=== PATIENT | male | born 1940 | race Caucasian/White ===

== ENCOUNTER → 2019-06-24 12:19 | Outpatient (CLI) | payer MEDICARE, BC | END | disposition home or self-care (01) | LOC: D.RT 12:19 → D.RAD 13:00 → D.CT 13:00 → D.RT 13:15 | PROVIDERS: ATTEND Internal Medicine Pulmonary Disease | DX: J44.9 Chronic obstructive pulmonary disease, unspecified (principal) ==

== ENCOUNTER 2020-04-01 11:47 | Inpatient (IN) | payer MEDICARE, BC ==
[~2020-04-01] VITALS: Ht 172.7 cm; Wt 50.9 kg
[2020-04-01 12:08] VITALS: BP 113/72; BMI 20.5
--- NOTE | 2020-04-01 12:23 | NUR ---
RECEIVED PT FROM ADMISSIONS. PT IS AAO AND UP WITH ASSIST. FALL PRECAUTIONS IN PLACE. CALL LIGHT W/I REACH. ELECTRIC WHEELCHAIR AT BEDSIDE. QUICKSTART, HISTORY, AND ASSESSMENT COMPLETE. PT ORIENTED TO ROOM. WILL CTM. NO S/S OF DISTRESS NOTED. RR EVEN AND UNLABORED ON 4L 02. VSS AND WNL.
--- NOTE | 2020-04-01 13:12 | NUR ---
EKG PERFORMED REVEALING UNCONTROLLED A-FIB AT 110. TELEMETRY APPLIED. 20GA INITIATED TO RIGHT FOREARM X1 ATTEMPT. D5NS INFUSING @50ML/HR ALONG WITH ABX. PT DENIES ANY NEEDS. WILL CTM.
[2020-04-01 14:09] LABS: BASOPHILS 0.1 % (0-2); EOSINOPHILS 0.1 % (0-7); HEMATOCRIT 38.2 % (42.0-54.0); HEMOGLOBIN 12.4 g/dL (13.5-17.5); IMMATURE GRANULOCYTES 0.9 % (0-5); LYMPHOCYTES 4.5 % (15-50); MCH 28.1 pg (26.0-34.0); MCHC 32.5 g/dL (31.0-37.0); MCV 86.6 fL (80.0-100.0); MEAN PLATELET VOLUME 9.6 fL (7.4-10.4); MONOCYTES 5.4 % (2-11); PLATELET COUNT 236 10x3/uL (130-400); RBC 4.41 10x6/uL (4.20-6.10); RDW 13.2 % (11.5-14.5); WBC 15.5 10x3/uL (4.8-10.8)
[2020-04-01 14:25] LABS: ALBUMIN 1.8 g/dL (3.4-5.0); ANION GAP 12.3 mmol/L (8-16); BILIRUBIN - TOTAL 0.62 mg/dL (0.2-1.3); CALCIUM 8.2 mg/dL (8.5-10.1); CARBON DIOXIDE 28.6 mmol/L (21.0-32.0); CREATININE - SERUM 1.7 mg/dL (0.6-1.3); MAGNESIUM - SERUM 1.9 mg/dL (1.8-2.4); PHOSPHOROUS 4.4 mg/dL (2.5-4.9); POTASSIUM - SERUM 4.9 mmol/L (3.5-5.1); PROTEIN - SERUM 5.8 g/dL (6.4-8.2)
[2020-04-01 14:29] LABS: BILIRUBIN NEGATIVE (NEGATIVE); GLUCOSE NEGATIVE (NEGATIVE); KETONE NEGATIVE (NEGATIVE); NITRITE NEGATIVE (NEGATIVE); SPECIFIC GRAVITY 1.015 (1.005-1.020); UROBILINOGEN NORMAL (NORMAL)
[2020-04-01] MEDS ORDERED: CYMBALTA60 MG PO (16:18)
[2020-04-01] MEDS ORDERED: TOPROL XL25 MG PO (16:18)
[2020-04-01] MEDS ORDERED: XARELTO20 MG PO (16:18)
[2020-04-01] MEDS ORDERED: LISINOPRIL10 MG PO (16:19)
[2020-04-01] MEDS ORDERED: PRAVACHOL40 MG PO (16:19)
[2020-04-01] MEDS ORDERED: FOLATE0.4 MG PO (16:19)
[2020-04-01] MEDS ORDERED: INCRUSE ELLI62.5 MCG INH (16:47)
[2020-04-01] MEDS ORDERED: DOXYCYCLINE HY100 M2 PO (16:50)
[2020-04-01] MEDS ORDERED: STERAPRED DS 1210 MG PO (16:51)
[2020-04-01 18:21] LABS: APTT 27.9 SECONDS (22.8-39.4); INR 1.54 (0.85-1.17); PROTIME 18.3 SECONDS (11.6-15.0)
[2020-04-01 18:56] VITALS: BP 128/65
[2020-04-01 20:00] VITALS: BP 109/67
[2020-04-02] VITALS: BP 127/73
--- NOTE | 2020-04-02 03:55 | NUR ---
I have reviewed this patient and I concur with the Shift Assessment completed by the Licensed Practical Nurse today this shift.
[2020-04-02 04:00] VITALS: BP 127/65
[2020-04-02 06:38] LABS: BASOPHILS 0.1 % (0-2); EOSINOPHILS 0 % (0-7); HEMOGLOBIN 11.5 g/dL (13.5-17.5); IMMATURE GRANULOCYTES 1.3 % (0-5); LYMPHOCYTES 4.9 % (15-50); MCH 27.8 pg (26.0-34.0); MCHC 31.9 g/dL (31.0-37.0); MEAN PLATELET VOLUME 9.5 fL (7.4-10.4); MONOCYTES 3.3 % (2-11); NEUTROPHILS 90.4 % (40-80); PLATELET COUNT 239 10x3/uL (130-400); RBC 4.14 10x6/uL (4.20-6.10); RDW 13.4 % (11.5-14.5)
[2020-04-02 06:42] LABS: ALBUMIN 1.7 g/dL (3.4-5.0); ANION GAP 10.1 mmol/L (8-16); BILIRUBIN - TOTAL 0.47 mg/dL (0.2-1.3); CARBON DIOXIDE 25.7 mmol/L (21.0-32.0); CREATININE - SERUM 1.6 mg/dL (0.6-1.3); POTASSIUM - SERUM 4.8 mmol/L (3.5-5.1); PROTEIN - SERUM 5.8 g/dL (6.4-8.2); VANCOMYCIN - RANDOM 8.8 ug/mL (10.0-20.0)
[2020-04-02 08:12] LABS: HEPATITIS C ANTIBODY 0.1 S/CO RAT (0.0-0.9)
[2020-04-02 08:31] VITALS: BP 168/93
[2020-04-02 10:16] VITALS: BMI 18.4
[2020-04-02 12:24] VITALS: BP 148/73
[2020-04-02 20:00] VITALS: BP 140/67
[2020-04-03] VITALS: BP 123/78
[2020-04-03 04:00] VITALS: BP 131/72
[2020-04-03 05:09] LABS: BASOPHILS 0.1 % (0-2); EOSINOPHILS 0 % (0-7); HEMATOCRIT 34.3 % (42.0-54.0); HEMOGLOBIN 10.8 g/dL (13.5-17.5); IMMATURE GRANULOCYTES 1.3 % (0-5); LYMPHOCYTES 2.8 % (15-50); MCH 27.4 pg (26.0-34.0); MCHC 31.5 g/dL (31.0-37.0); MCV 87.1 fL (80.0-100.0); MEAN PLATELET VOLUME 9.7 fL (7.4-10.4); MONOCYTES 3.6 % (2-11); NEUTROPHILS 92.2 % (40-80); PLATELET COUNT 263 10x3/uL (130-400); RBC 3.94 10x6/uL (4.20-6.10); RDW 13.3 % (11.5-14.5)
[2020-04-03 05:31] LABS: ALBUMIN 1.6 g/dL (3.4-5.0); ANION GAP 12.5 mmol/L (8-16); BILIRUBIN - TOTAL 0.43 mg/dL (0.2-1.3); CALCIUM 7.8 mg/dL (8.5-10.1); CARBON DIOXIDE 23.3 mmol/L (21.0-32.0); CREATININE - SERUM 1.7 mg/dL (0.6-1.3); MAGNESIUM - SERUM 1.7 mg/dL (1.8-2.4); POTASSIUM - SERUM 4.8 mmol/L (3.5-5.1); PROTEIN - SERUM 5.4 g/dL (6.4-8.2); VANCOMYCIN - RANDOM 10.5 ug/mL (10.0-20.0)
[2020-04-03 09:26] VITALS: BP 132/69
[2020-04-03 10:43] VITALS: Ht 172.7 cm; Wt 50.9 kg
[2020-04-03 14:09] VITALS: BP 120/74
--- NOTE | 2020-04-03 16:18 | NUR ---
PT TRANSFERED TO 2226.
--- NOTE | 2020-04-03 16:57 | NUR ---
RECIEVED PT FROM MED 2. PT SITTING ON BED, A&O X4. PIV IN LEFT AC, PATENT, INFUSING D5. PT ON 4L NC. C/O DYSPNEA UPON EXERTION. PT ABLE TO AMBULATE WITHOUT ASSIST. EDUCATED ON CL, PT VERBALIZED UNDERSTANDING. BED LOW, RAILS X2. CL IN REACH. WILL CONTINUE TO MONITOR.
[2020-04-03 20:00] VITALS: BP 138/79
--- NOTE | 2020-04-03 21:56 | NUR ---
ASSESSED AT THE BEGINNING OF THE SHIFT. PT IS ALERT AND ORIENTED, ABLE TO VERBALIZE NEEDS. HE IS ALSO ABLE TO GET UP AD LETICIA TO THE BATHROOM BUT IT CAUSES HIM TO BE VERY SHORT OF BREATH. HIS TELEMETRY SHOWS HIS HR TO GO UP INTO THE 150'S WHEN HE IS UP TO THE BATHROOM.
[2020-04-04] VITALS: BP 164/89
[2020-04-04 04:00] VITALS: BP 143/36
[2020-04-04 06:22] LABS: BASOPHILS 0.1 % (0-2); EOSINOPHILS 0 % (0-7); HEMATOCRIT 36.9 % (42.0-54.0); HEMOGLOBIN 11.5 g/dL (13.5-17.5); IMMATURE GRANULOCYTES 1.4 % (0-5); LYMPHOCYTES 2.4 % (15-50); MCH 27.6 pg (26.0-34.0); MCHC 31.2 g/dL (31.0-37.0); MCV 88.7 fL (80.0-100.0); MEAN PLATELET VOLUME 9.7 fL (7.4-10.4); MONOCYTES 4.8 % (2-11); NEUTROPHILS 91.3 % (40-80); PLATELET COUNT 289 10x3/uL (130-400); RBC 4.16 10x6/uL (4.20-6.10); RDW 13.7 % (11.5-14.5); WBC 19.4 10x3/uL (4.8-10.8)
[2020-04-04 06:45] LABS: ALBUMIN 1.9 g/dL (3.4-5.0); ANION GAP 10.8 mmol/L (8-16); BILIRUBIN - TOTAL 0.53 mg/dL (0.2-1.3); CALCIUM 7.9 mg/dL (8.5-10.1); CARBON DIOXIDE 24.6 mmol/L (21.0-32.0); CREATININE - SERUM 1.6 mg/dL (0.6-1.3); MAGNESIUM - SERUM 1.8 mg/dL (1.8-2.4); POTASSIUM - SERUM 4.4 mmol/L (3.5-5.1); PROTEIN - SERUM 5.7 g/dL (6.4-8.2)
[2020-04-04 09:16] VITALS: BP 143/82
[2020-04-04 13:17] VITALS: BP 142/83
[2020-04-04 16:50] VITALS: BP 122/82
--- NOTE | 2020-04-04 17:24 | NUR ---
iv right forearm tender,dcd with cath tip intact. iv resited to right lower forearm x2 sticks using aseptic tech,22g.
--- NOTE | 2020-04-04 18:22 | NUR ---
REMAINS WITHOUT CHANGE. CONT PLAN OF CARE
[2020-04-04 20:00] VITALS: BP 138/80
[2020-04-05] VITALS: BP 142/89
[2020-04-05 04:00] VITALS: BP 131/74
--- NOTE | 2020-04-05 05:51 | NUR ---
DREW CALLED STAFF TO ROOM C/O ABD PAIN IN AREA OF BLADER. STATED HE HAS BEEN HAVING TROUBLE VOUIDING FOR THE LAST FEW DAYS. IT WAS WORSE THIS SHIFT STATED THAT HE HAD URNATED X1 IN THE BATHROOM BUT IT WAS A VERY SMALL AMOUNT. HE HAD 100 CC IN YRINAL AT BEDSIDE. BLADER SCAN COMPLETED SHOWD 421. CALL TO COMMERCIAL LOAN PROCESSOR WITH NEW ORDER FOR INOUT CATH X1 NOW. INOUT CAHT COMPLETED PER PROTOCAL WITH 421CC OUTPUT. PATENT STATED HE FELT MUCH BETTER . SLEEPING WHEN CHECKED ON LATER.
[2020-04-05 06:51] LABS: BASOPHILS 0.1 % (0-2); EOSINOPHILS 0 % (0-7); HEMATOCRIT 36.1 % (42.0-54.0); HEMOGLOBIN 11.3 g/dL (13.5-17.5); IMMATURE GRANULOCYTES 0.8 % (0-5); LYMPHOCYTES 5.2 % (15-50); MCH 27.6 pg (26.0-34.0); MCHC 31.3 g/dL (31.0-37.0); MEAN PLATELET VOLUME 9.4 fL (7.4-10.4); NEUTROPHILS 92.9 % (40-80); PLATELET COUNT 238 10x3/uL (130-400); RDW 13.8 % (11.5-14.5); WBC 15.7 10x3/uL (4.8-10.8)
[2020-04-05 06:55] LABS: ANION GAP 7.4 mmol/L (8-16); BILIRUBIN - TOTAL 0.58 mg/dL (0.2-1.3); CALCIUM 8.1 mg/dL (8.5-10.1); CARBON DIOXIDE 27.5 mmol/L (21.0-32.0); CREATININE - SERUM 1.6 mg/dL (0.6-1.3); MAGNESIUM - SERUM 1.9 mg/dL (1.8-2.4); POTASSIUM - SERUM 4.9 mmol/L (3.5-5.1); PROTEIN - SERUM 5.6 g/dL (6.4-8.2)
--- NOTE | 2020-04-05 07:15 | NUR ---
BEDSIDE SHIFT REPORT RECEIVED, ASSESSMENT COMPLETE, DENIES PAIN, BED LOWEST POSITION, CALL LIGHT IN REACH, BREATHING EVEN UNLABORED, LUNGS DIMINISHED BILATERALY, IV TO RFA PATENT, DENIES NEEDS AT THIS TIME, WILL CONTINUE TO MONITOR
[2020-04-05 09:02] VITALS: BP 175/91
--- NOTE | 2020-04-05 11:00 | NUR ---
MEREDITH CATHETER PLACED PER ORDER, 14FR COUDE PLACED WITH SOME RESISTANCE, 700CC OUTPUT
[2020-04-05 12:41] VITALS: BP 144/86
[2020-04-05 17:09] VITALS: BP 98/54
[2020-04-05 21:20] VITALS: BP 101/49
--- NOTE | 2020-04-06 01:47 | NUR ---
RESTING WITH NO NEEDS AT THIS TIME. NO S/S OF DISTRESS. IV TO RIGHT FOREARM WITH NS AT 50ML/HR. O2 AT 4 LETERS VIA N/C. FOLLEY CATH IN PLACE WITH URINE TO BAG.
[2020-04-06 04:00] VITALS: BP 143/71
[2020-04-06 05:21] LABS: BASOPHILS 0.1 % (0-2); EOSINOPHILS 0 % (0-7); HEMOGLOBIN 11.4 g/dL (13.5-17.5); IMMATURE GRANULOCYTES 0.8 % (0-5); LYMPHOCYTES 2.4 % (15-50); MCH 27.7 pg (26.0-34.0); MCHC 31.7 g/dL (31.0-37.0); MCV 87.4 fL (80.0-100.0); MEAN PLATELET VOLUME 9.6 fL (7.4-10.4); NEUTROPHILS 93.7 % (40-80); PLATELET COUNT 221 10x3/uL (130-400); RBC 4.12 10x6/uL (4.20-6.10); RDW 13.9 % (11.5-14.5); WBC 14.5 10x3/uL (4.8-10.8)
[2020-04-06 05:48] LABS: ANION GAP 8.5 mmol/L (8-16); BILIRUBIN - TOTAL 0.74 mg/dL (0.2-1.3); CALCIUM 8.2 mg/dL (8.5-10.1); CARBON DIOXIDE 29.4 mmol/L (21.0-32.0); CREATININE - SERUM 1.4 mg/dL (0.6-1.3); POTASSIUM - SERUM 4.9 mmol/L (3.5-5.1); PROTEIN - SERUM 5.7 g/dL (6.4-8.2)
--- NOTE | 2020-04-06 07:21 | NUR ---
PATIENT ALERT AND ORIENTED. RESTING QUIETLY IN BED WITH EYES OPEN. RESPIRATIONS EVEN NON LABORED. NO SIGNS OF DISTRESS NOTED. RIGHT FOREARM IV NORMAL SALINE AT 50ML/HR. PATIENT AD LETICIA. O2 ON 4L. MEREDITH IN PLACE. TELEMETRY 110 UNCONTROLLED AFIB. DENIES FURTHER NEEDS, SIDE RAILS UP X3. CALL LIGHT IN REACH. WILL CONTINUE TO MONITOR FOR SAFETY.
[2020-04-06 09:12] VITALS: BP 124/50
--- NOTE | 2020-04-06 10:38 | NUR ---
I have reviewed this patient and I concur with the Shift Assessment completed by the Licensed Practical Nurse today this shift.
[2020-04-06 12:38] VITALS: BP 127/76
--- NOTE | 2020-04-06 12:55 | NUR ---
PATIENT ALERT AND ORIENTED. SITTING UP IN BED EATING. RESPIRATIONS EVEN NON LABORED. NO SIGNS OF DISTRESS NOTED. DENIES FURTHER NEEDS. SIDE RAILS UP X3. CALL LIGHT IN REACH. WILL CONTINUE TO MONITOR FOR SAFETY.
--- NOTE | 2020-04-06 17:06 | MORECARE ---
CASE MANAGEMENT DISCHARGE SUMMARY PATIENT: NYDIA GANNON UNIT: [id number] ADM DATE: 04/01/20 AGE: 80 : 40 SEX: M ROOM/BED: D.2227 AUTHOR: GIOVANA SUE PHYSICIAN: REFERRING PHYSICIAN: MICAH MADISON MD DATE OF SERVICE: 04/06/20 Discharge Plan Patient Name: NYDIA GANNON [facility] [facility] 1940 Planned Disposition: Anticipated Discharge Date: Discharge Date: Expected LOS: Initial Reviewer: [email or web address] Initial Review Date: 04/01/2020 Generated: 04/06/20 6:06 pm Comments DCP- Discharge Planning Updated by [id number]: Abby Amin on 04/06/20 4:[address] Patient Name: NYDIA GANNON Admission Status: Urgent Accout number: [id number] Admission Date: 04-01-2020 : 1940 Admission Diagnosis:DYSPNEA, UNSPECIFIED Attending: MICAH MADISON Current LOS: 5 Anticipated DC Date: Planned Disposition: Primary Insurance: MEDICARE A & B Discharge Planning Comments: PATIENT HAS HOME 02 AND MOTORIZED WHEELCHAIR. MEDICAL RECORDS STATE PATIENT INDEPENDENT WITH ALL MOBILITY. STATES HE DOES NOT REQUIRED SKILLED PT. PATIENT IS AT HIS PLOF, AMBULATES HOUSEHOLD DISTANCES ONLY. USES A MOTORIZED WHEELCHAIR. LIVES AT HOME WITH SPOUSE. CM WILL FOLLOW AND ASSIST NEEDED WITH DC PLANNING/NEEDS. Electrical And Radio Aircraft Mechanic: Abby Amin Patient Name: NYDIA GANNON Page [phone] at 1706 All edits/amendments must be made on the electronic document DICTATION DATE: 04/06/20 1706 TRANSPORTER DRIVER: EDILIA 04/06/20 1706 RPT#: [id number] DC DATE: STATUS: ADM IN [facility] [address] [place] [address] END OF REPORT
--- NOTE | 2020-04-06 18:18 | NUR ---
PATIENT ALERT AND ORIENTED. SITTING UP IN BED WATCHING TV. RESPIRATIONS EVEN NON LABORED. NO SIGNS OF DISTRESS NOTED. DENIES FURTHER NEEDS. SIDE RAILS UP X3. CALL LIGHT IN REACH. WILL CONTINUE TO MONITOR FOR SAFETY.
[2020-04-06 18:45] VITALS: BP 125/72
[2020-04-06 20:00] VITALS: BP 100/61
--- NOTE | 2020-04-06 20:00 | NUR ---
ALERT RESTING IN BED, RESP UNLABORED O2 IN USE, DENIES PAIN OR NEEDS AT THIS TIME, SEE SHIFT ASSESSMENT, CALL LIGHT IN REACH
[2020-04-07 04:00] VITALS: BP 98/57
[2020-04-07 05:27] LABS: BASOPHILS 0 % (0-2); EOSINOPHILS 0 % (0-7); HEMATOCRIT 36.6 % (42.0-54.0); HEMOGLOBIN 11.5 g/dL (13.5-17.5); IMMATURE GRANULOCYTES 0.4 % (0-5); LYMPHOCYTES 4.6 % (15-50); MCH 27.4 pg (26.0-34.0); MCHC 31.4 g/dL (31.0-37.0); MCV 87.4 fL (80.0-100.0); MEAN PLATELET VOLUME 9.3 fL (7.4-10.4); MONOCYTES 1.2 % (2-11); NEUTROPHILS 93.8 % (40-80); PLATELET COUNT 200 10x3/uL (130-400); RBC 4.19 10x6/uL (4.20-6.10); WBC 11.6 10x3/uL (4.8-10.8)
[2020-04-07 05:56] LABS: ANION GAP 10.5 mmol/L (8-16); BILIRUBIN - TOTAL 0.76 mg/dL (0.2-1.3); CALCIUM 7.9 mg/dL (8.5-10.1); CARBON DIOXIDE 27.4 mmol/L (21.0-32.0); CREATININE - SERUM 1.6 mg/dL (0.6-1.3); POTASSIUM - SERUM 4.9 mmol/L (3.5-5.1); PROTEIN - SERUM 5.6 g/dL (6.4-8.2)
--- NOTE | 2020-04-07 07:09 | NUR ---
PATIENT ALERT AND ORIENTED. RESTING IN BED QUIETLY WITH EYES OPEN. RESPIRATIONS EVEN NONLABORED. NO SIGNS OF DISTRESS NOTED. RIGHT FOREARM NORMAL SALINE 50ML/HR. O2 NASAL CANNULA 3L. MEREDITH IN PLACE. PATIENT UP AD LETICIA. DENIES FURTHER NEEDS. SIDE RAILS UP X3. CALL LIGHT IN REACH. WILL CONTINUE TO MONITOR FOR SAFETY.
[2020-04-07 09:01] VITALS: BP 144/83
[2020-04-07 11:59] VITALS: BP 124/82
--- NOTE | 2020-04-07 14:30 | NUR ---
Nutrition follow-up: Pt receiving a regular diet with strawberry Ensure TID PO Intake ~65% average of last 6 meals Megace started and pt reports appetite has improved labs reviewed WT: 143# RDN following.
[2020-04-07 16:41] VITALS: BP 131/75
--- NOTE | 2020-04-07 18:53 | NUR ---
PATIENT ALERT AND ORIENTED. RESTING QUIETLY IN BED WATCHING TV. RESPIRATIONS EVEN NON LABORED. NO SIGNS OF DISTRESS NOTED. DENIES FURTHER NEEDS. SIDE RAILS UP X3. CALL LIGHT IN REACH. WILL CONTINUE TO MONITOR FOR SAFETY.
--- NOTE | 2020-04-07 19:24 | NUR ---
I have reviewed this patient and I concur with the Shift Assessment completed by the Licensed Practical Nurse today this shift.
[2020-04-07 20:00] VITALS: BP 119/75
--- NOTE | 2020-04-07 20:00 | NUR ---
PT SITTING UP IN BED WITHOUT DISTRESS, AOX4. IV RIGHT FA INFUSING NS @ 50. FOEY IN PLACE. O2 3L/NC. REQUESTED AND GIVEN CORNELIUS MCCLURE. DENIES OTHER NEEDS. CL IN REACH, WILL CTM
[2020-04-08] VITALS: BP 142/83
[2020-04-08 04:00] VITALS: BP 149/92
[2020-04-08 04:50] LABS: BASOPHILS 0 % (0-2); EOSINOPHILS 0 % (0-7); HEMATOCRIT 34.9 % (42.0-54.0); HEMOGLOBIN 11.1 g/dL (13.5-17.5); IMMATURE GRANULOCYTES 0.5 % (0-5); LYMPHOCYTES 2.3 % (15-50); MCH 27.8 pg (26.0-34.0); MCHC 31.8 g/dL (31.0-37.0); MCV 87.3 fL (80.0-100.0); MEAN PLATELET VOLUME 9.7 fL (7.4-10.4); MONOCYTES 2.7 % (2-11); NEUTROPHILS 94.5 % (40-80); PLATELET COUNT 189 10x3/uL (130-400); WBC 11.3 10x3/uL (4.8-10.8)
[2020-04-08 05:24] LABS: ALBUMIN 1.9 g/dL (3.4-5.0); ANION GAP 9.6 mmol/L (8-16); BILIRUBIN - TOTAL 0.68 mg/dL (0.2-1.3); CALCIUM 7.6 mg/dL (8.5-10.1); CARBON DIOXIDE 27.4 mmol/L (21.0-32.0); CREATININE - SERUM 1.6 mg/dL (0.6-1.3); PROTEIN - SERUM 5.4 g/dL (6.4-8.2); VANCOMYCIN - RANDOM 18.3 ug/mL (10.0-20.0)
[2020-04-08 08:38] VITALS: BP 147/87
[2020-04-08 12:41] VITALS: BP 142/83
[2020-04-08 17:00] VITALS: BP 134/74
--- NOTE | 2020-04-08 19:27 | NUR ---
I have reviewed this patient and I concur with the Shift Assessment completed by the Licensed Practical Nurse today this shift.
[2020-04-08 20:00] VITALS: BP 122/78
--- NOTE | 2020-04-08 20:40 | NUR ---
LYING IN BED. ALERT AND ORIENTED X4. RES IRREG. O2 @ 3L/NC. NONPROD COUGH NOTED. NS @ 50 MLHR INFUSING IN RT FOREARM. BRUISES NOTED TO BUE. TELEMETRY SHOWS AFIB WITH RATE OF 91. DENIES PAIN. SR ELEVATED X2. CL IN REACH.
--- NOTE | 2020-04-08 23:00 | NUR ---
RESTING QUIETLY WITH EYES CLOSED. RESP NONLABORED. CL IN REACH.
[2020-04-09] VITALS: BP 168/81
--- NOTE | 2020-04-09 02:00 | NUR ---
LYING IN BED USING FLUTTER VALVE. NO DISTRESS. CL IN REACH.
[2020-04-09 04:00] VITALS: BP 143/57
[2020-04-09 04:56] LABS: BASOPHILS 0 % (0-2); EOSINOPHILS 0.1 % (0-7); HEMATOCRIT 34.3 % (42.0-54.0); HEMOGLOBIN 10.7 g/dL (13.5-17.5); IMMATURE GRANULOCYTES 0.4 % (0-5); LYMPHOCYTES 3.6 % (15-50); MCH 27.3 pg (26.0-34.0); MCHC 31.2 g/dL (31.0-37.0); MCV 87.5 fL (80.0-100.0); MEAN PLATELET VOLUME 9.8 fL (7.4-10.4); MONOCYTES 2.3 % (2-11); NEUTROPHILS 93.6 % (40-80); PLATELET COUNT 163 10x3/uL (130-400); RBC 3.92 10x6/uL (4.20-6.10); RDW 14.1 % (11.5-14.5); WBC 11.1 10x3/uL (4.8-10.8)
[2020-04-09 05:14] LABS: ALBUMIN 1.8 g/dL (3.4-5.0); ANION GAP 8.6 mmol/L (8-16); BILIRUBIN - TOTAL 0.56 mg/dL (0.2-1.3); CALCIUM 7.5 mg/dL (8.5-10.1); CARBON DIOXIDE 27.3 mmol/L (21.0-32.0); CREATININE - SERUM 1.6 mg/dL (0.6-1.3); POTASSIUM - SERUM 4.9 mmol/L (3.5-5.1); PROTEIN - SERUM 5.1 g/dL (6.4-8.2)
[2020-04-09 08:00] VITALS: BP 143/76
--- NOTE | 2020-04-09 08:49 | NUR ---
ASSESSMENT PER FLOW SHEET. PATIENT IS WITHOUT DISTRESS. NON PRODUCTIVE COUGH OCCASIONAL.CALL LIGHT IN REACH.BED ALARM ON AND WORKING
--- NOTE | 2020-04-09 10:02 | NUR ---
Bruises noted on bilateral arms.
[2020-04-09 12:00] VITALS: BP 138/79
--- NOTE | 2020-04-09 14:44 | MORECARE ---
CASE MANAGEMENT DISCHARGE SUMMARY PATIENT: NYDIA GANNON UNIT: [id number] ADM DATE: 04/01/20 AGE: 80 : 40 SEX: M ROOM/BED: D.2227 AUTHOR: GIOVANA SUE PHYSICIAN: REFERRING PHYSICIAN: MICAH MADISON MD DATE OF SERVICE: 04/09/20 Discharge Plan Patient Name: NYDIA GANNON [facility] [facility] 1940 Planned Disposition: Anticipated Discharge Date: Discharge Date: Expected LOS: Initial Reviewer: [email or web address] Initial Review Date: 04/01/2020 Generated: 04/09/20 3:44 pm DCP- Discharge Planning Updated by [email or web address]: Abby Amin on 04/06/20 4:[address] Patient Name: NYDIA GANNON Admission Status: Urgent Accout number: [id number] Admission Date: 04-01-2020 : 1940 Admission Diagnosis:DYSPNEA, UNSPECIFIED Attending: MICAH MADISON Current LOS: 5 Anticipated DC Date: Planned Disposition: Primary Insurance: MEDICARE A & B Discharge Planning Comments: PATIENT HAS HOME 02 AND MOTORIZED WHEELCHAIR. MEDICAL RECORDS STATE PATIENT INDEPENDENT WITH ALL MOBILITY. STATES HE DOES NOT REQUIRED SKILLED PT. PATIENT IS AT HIS PLOF, AMBULATES HOUSEHOLD DISTANCES ONLY. USES A MOTORIZED WHEELCHAIR. LIVES AT HOME WITH SPOUSE. CM WILL FOLLOW AND ASSIST NEEDED WITH DC PLANNING/NEEDS. Meter Record Clerk: Abby Amin Last DP export: 04/06/20 4:06 pm Patient Name: NYDIA GANNON Page [phone] at 1444 All edits/amendments must be made on the electronic document DICTATION DATE: 04/09/20 1444 E COMMERCE DEVELOPER: EDILIA 04/09/20 1444 RPT#: [id number] DC DATE: STATUS: ADM IN [facility] [address] [place] [address] END OF REPORT
[2020-04-09 16:00] VITALS: BP 111/56
--- NOTE | 2020-04-09 18:22 | MORECARE ---
CASE MANAGEMENT DISCHARGE SUMMARY PATIENT: NYDIA GANNON UNIT: [id number] ADM DATE: 04/01/20 AGE: 80 : 40 SEX: M ROOM/BED: D.2227 AUTHOR: GIOVANA SUE PHYSICIAN: REFERRING PHYSICIAN: MICAH MADISON MD DATE OF SERVICE: 04/09/20 Discharge Plan Patient Name: NYDIA GNANON [facility] : 1940 Planned Disposition: Anticipated Discharge Date: Discharge Date: Expected LOS: Initial Reviewer: [id number] Initial Review Date: 04/01/2020 Generated: 04/09/20 7:21 pm DCP- Discharge Planning Updated by [email or web address]: Abby Amin on 04/06/20 4:[address] Patient Name: NYDIA GANNON Admission Status: Urgent Accout number: [id number] Admission Date: 04-01-2020 : 1940 Admission Diagnosis:DYSPNEA, UNSPECIFIED Attending: MICAH MADISON Current LOS: 5 Anticipated DC Date: Planned Disposition: Primary Insurance: MEDICARE A & B Discharge Planning Comments: PATIENT HAS HOME 02 AND MOTORIZED WHEELCHAIR. MEDICAL RECORDS STATE PATIENT INDEPENDENT WITH ALL MOBILITY. STATES HE DOES NOT REQUIRED SKILLED PT. PATIENT IS AT HIS PLOF, AMBULATES HOUSEHOLD DISTANCES ONLY. USES A MOTORIZED WHEELCHAIR. LIVES AT HOME WITH SPOUSE. CM WILL FOLLOW AND ASSIST NEEDED WITH DC PLANNING/NEEDS. Color Consultant: Abby Amin Last DP export: 04/09/20 1:44 pm Patient Name: NYDIA GANNON Page [phone] at 1822 All edits/amendments must be made on the electronic document DICTATION DATE: 04/09/201820 MIRROR SPECIALIST: EDILIA 04/09/201820 RPT#: [id number] DC DATE: STATUS: ADM IN [facility] [address] [place] [address] END OF REPORT
--- NOTE | 2020-04-09 18:30 | MORECARE ---
CASE MANAGEMENT DISCHARGE SUMMARY PATIENT: NYDIA GANNON UNIT: [id number] ADM DATE: 04/01/20 AGE: 80 : 40 SEX: M ROOM/BED: D.2227 AUTHOR: LINETTEDOC PHYSICIAN: REFERRING PHYSICIAN: MICAH MADISON MD DATE OF SERVICE: 04/09/20 Discharge Plan Patient Name: NYDIA GANNON Facility: [facility]:[place] : 1940 Planned Disposition: Anticipated Discharge Date: Discharge Date: Expected LOS: Initial Reviewer: [email or web address] Initial Review Date: 04/01/2020 Generated: 04/09/20 7:30 pm Comments DCP- Discharge Planning Updated by [id number]: Abby Amin on 04/09/20 5:[address] Patient Name: NYDIA GANNON Admission Status: Urgent Accout number: [id number] Admission Date: 04-01-2020 : 1940 Admission Diagnosis:DYSPNEA, UNSPECIFIED Attending: MICAH MADISON Current LOS: 8 Anticipated DC Date: Planned Disposition: Primary Insurance: MEDICARE A & B Discharge Planning Comments: SPOKE WITH PATIENT TODAY. HE PLANS TO GO HOME WHEN BETTER. HE HAS O2 FOR NIGHT TIME. WILL NEED WALK TEST FOR POSSIBLE O2 AT HOME. USES [facility] PATIENT. DOES NOT WANT HH OR REHAB. STATES HE IS CAPABLE OF DOING HIS OWN THERAPY. 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 I TALKED WITH DR. SOLORZANO AND POSSIBLE DC WILL BE MONDAY. CM TO FOLLOW AND ASSIST. Print Cutter: Abby Amin DCP- Discharge Planning Updated by [id number]: Abby Amin on 04/06/20 4:[address] Patient Name: NYDIA GANNON Admission Status: Urgent Accout number: [id number] Admission Date: 04-01-2020 : 1940 Admission Diagnosis:DYSPNEA, UNSPECIFIED Attending: MICAH MADISON Current LOS: 5 Anticipated DC Date: Planned Disposition: Primary Insurance: MEDICARE A & B Discharge Planning Comments: PATIENT HAS HOME 02 AND MOTORIZED WHEELCHAIR. MEDICAL RECORDS STATE PATIENT INDEPENDENT WITH ALL MOBILITY. STATES HE DOES NOT REQUIRED SKILLED PT. PATIENT IS AT HIS PLOF, AMBULATES HOUSEHOLD DISTANCES ONLY. USES A MOTORIZED WHEELCHAIR. LIVES AT HOME WITH SPOUSE. CM WILL FOLLOW AND ASSIST NEEDED WITH DC PLANNING/NEEDS. Print Cutter: Abby Schwartz DP export: 04/09/20 5:22 pm Patient Name: NYDIA GANNON Page [phone] at 1830 All edits/amendments must be made on the electronic document DICTATION DATE: 04/09/201829 ADMISSION SPECIALIST: EDILIA 04/09/201829 RPT#: [id number] DC DATE: STATUS: ADM IN [facility] [address] [place] [address] END OF REPORT
--- NOTE | 2020-04-09 18:43 | NUR ---
REMAINS WITHOUT NEEDS,WITHOUT CHANGE.CONT PLAN OF CARE
[2020-04-09 20:00] VITALS: BP 144/81
[2020-04-10 04:00] VITALS: BP 151/86
[2020-04-10 06:30] LABS: BASOPHILS 0 % (0-2); EOSINOPHILS 0.7 % (0-7); HEMATOCRIT 35.9 % (42.0-54.0); HEMOGLOBIN 11.4 g/dL (13.5-17.5); IMMATURE GRANULOCYTES 0.2 % (0-5); LYMPHOCYTES 5.6 % (15-50); MCH 27.8 pg (26.0-34.0); MCHC 31.8 g/dL (31.0-37.0); MCV 87.6 fL (80.0-100.0); MEAN PLATELET VOLUME 9.8 fL (7.4-10.4); MONOCYTES 4.5 % (2-11); PLATELET COUNT 148 10x3/uL (130-400); RDW 14.2 % (11.5-14.5); WBC 9.5 10x3/uL (4.8-10.8)
[2020-04-10 06:44] LABS: ALBUMIN 1.9 g/dL (3.4-5.0); ANION GAP 8.6 mmol/L (8-16); BILIRUBIN - TOTAL 0.62 mg/dL (0.2-1.3); CALCIUM 7.5 mg/dL (8.5-10.1); CARBON DIOXIDE 28.5 mmol/L (21.0-32.0); CREATININE - SERUM 1.5 mg/dL (0.6-1.3); POTASSIUM - SERUM 4.1 mmol/L (3.5-5.1); PROTEIN - SERUM 5.3 g/dL (6.4-8.2)
--- NOTE | 2020-04-10 07:43 | NUR ---
ALERT AND ORIENTED. LUNGS WITH BILATERAL WHEEZES AND RONCHI. HEART SOUNDS S1 AND S2 HEARD IN ALL HAMLIN. BOWEL SOUNDS ACTIVE X 4. IV TO RFA PATENT WITHOUT REDNESS. DENIES NEEDS. BED LOW. BED ALARM ON. CALL BOWEN AND PERSONAL ITEMS IN REACH. WILL CONTINUE TO MONITOR.
[2020-04-10 08:00] VITALS: BP 140/78
[2020-04-10 12:00] VITALS: BP 118/72
--- NOTE | 2020-04-10 13:36 | NUR ---
RESTING IN BED. DENIES NEEDS. WILL CONTINUE TO MONITOR.
[2020-04-10 16:00] VITALS: BP 126/83
--- NOTE | 2020-04-10 19:30 | NUR ---
EYES CLOSED, EVEN/NON LABORED RESPIRATIONS. SPONTANEOUS EYE OPENING UPON VERBAL STIMULATION. DENIES PAIN. REPORTS OCCASIONAL SOB. A&O X 4. REQUESTS TO SKIP NIGHTLY DOSE OF MIRALAX. STATES HE HAD A VERY LARGE, VERY SOFT BM 04/09 AND HE GETS SOB WHEN STUCK ON THE TOILET. NO FURTHER NEEDS VOICED, CTM.
[2020-04-10 20:00] VITALS: BP 138/88
--- NOTE | 2020-04-11 03:04 | NUR ---
I have reviewed this patient and I concur with the Shift Assessment completed by the Licensed Practical Nurse today this shift.
[2020-04-11 05:28] LABS: HEMATOCRIT 33.4 % (42.0-54.0); LYMPHOCYTES 6.1 % (15-50); MCHC 32.9 g/dL (31.0-37.0); MCV 88.1 fL (80.0-100.0); MEAN PLATELET VOLUME 9.6 fL (7.4-10.4); NEUTROPHILS 87.4 % (40-80); RBC 3.79 10x6/uL (4.20-6.10); RDW 14.6 % (11.5-14.5); WBC 8.6 10x3/uL (4.8-10.8)
[2020-04-11 05:29] LABS: PLATELET COUNT 115 10x3/uL (130-400)
[2020-04-11 05:40] LABS: ALBUMIN 1.8 g/dL (3.4-5.0); ANION GAP 9.7 mmol/L (8-16); BILIRUBIN - TOTAL 0.58 mg/dL (0.2-1.3); CALCIUM 7.4 mg/dL (8.5-10.1); CARBON DIOXIDE 26.3 mmol/L (21.0-32.0); CREATININE - SERUM 1.5 mg/dL (0.6-1.3); PROTEIN - SERUM 4.9 g/dL (6.4-8.2)
--- NOTE | 2020-04-11 09:03 | NUR ---
REHAB PRESCREENING Rehab referral received and chart reviewed. Mr. Guadarrama appears to be a good candidate for acute inpatient rehab if he is agreeable to come. Rehab will continue to follow him and plan for admission after his bronch mentioned for first of next week. Thank you for this referral! Paige Ritter, DIELECTRIC TESTER Rehab PD
--- NOTE | 2020-04-11 10:03 | NUR ---
PT ALERT AND ORIENTED X4 UPON ENTERING. ADMINISTERED MEDICATION, NO DIFFICULTIES. ASSESSMENT PERFORMED AT THIS TIME. PT DENIES ANY NEEDS. BED IN LOWEST POSITION, BED RAILS X2, CALL LIGHT WITHIN REACH. WILL CONTINUE TO MONITOR.
[2020-04-11 10:22] VITALS: BP 128/80
--- NOTE | 2020-04-11 13:35 | NUR ---
HUNG IV ABX. RESTING IN BED. DENIES ANY NEEDS. WILL CONTINUE TO MONITOR.
[2020-04-11 14:02] VITALS: BP 147/87
--- NOTE | 2020-04-11 14:25 | NUR ---
I have reviewed this patient and I concur with the Shift Assessment completed by the Licensed Practical Nurse today this shift.
--- NOTE | 2020-04-11 15:38 | NUR ---
PT RESTING COMFORTABLY, FAMILY AT BEDSIDE. DENIES ANY NEEDS. WILL CONTINUE TO MONITOR.
--- NOTE | 2020-04-11 17:34 | NUR ---
ADMINISTERED MEDICATION, NO DIFFICULTIES. UP RIGHT ON BED SIDE EATING DINNER. DENIES ANY NEEDS. WILL CONTINUE TO MONITOR.
[2020-04-11 18:21] VITALS: BP 119/71
[2020-04-11 20:00] VITALS: BP 128/78
--- NOTE | 2020-04-12 01:57 | NUR ---
PT SITTING UP IN BED WATCHING TV. VSS. HE DENIES NEEDS OR PAIN. BED IS LOW AND CALL LIGHT IS WITHIN REACH.
[2020-04-12 04:00] VITALS: BP 147/69
--- NOTE | 2020-04-12 07:15 | NUR ---
A&O RESTING IN BED WITH EYES OPEN. NO C/O PAIN. NO S/S OF ACUTE DISTRESS NOTED. ON 2L O2, NC. IV TO RIGHT FOREARM, NS INFUSING @ 50ML/HR. SITE PATENT WITHOUT REDNESS OR SWELLING. ON TELEMETRY CONTROLLED A-FIB 93. MEREDITH CATHETER IN PLACE. DENIES ANY NEEDS AT THIS TIME. CALL LIGHT IN REACH. WILL CONTINUE TO MONITOR.
[2020-04-12 07:40] LABS: HEMATOCRIT 33.5 % (42.0-54.0); HEMOGLOBIN 10.6 g/dL (13.5-17.5); LYMPHOCYTES 6.4 % (15-50); MCHC 31.6 g/dL (31.0-37.0); MCV 88.4 fL (80.0-100.0); MEAN PLATELET VOLUME 10.7 fL (7.4-10.4); NEUTROPHILS 86.9 % (40-80); PLATELET COUNT 106 10x3/uL (130-400); RBC 3.79 10x6/uL (4.20-6.10); RDW 14.5 % (11.5-14.5); WBC 7.8 10x3/uL (4.8-10.8)
[2020-04-12 08:09] LABS: ALBUMIN 1.8 g/dL (3.4-5.0); BILIRUBIN - TOTAL 0.73 mg/dL (0.2-1.3); CALCIUM 7.2 mg/dL (8.5-10.1); CARBON DIOXIDE 26.7 mmol/L (21.0-32.0); CREATININE - SERUM 1.3 mg/dL (0.6-1.3); POTASSIUM - SERUM 3.7 mmol/L (3.5-5.1); PROTEIN - SERUM 5.1 g/dL (6.4-8.2)
[2020-04-12 09:24] VITALS: BP 143/82
[2020-04-12 12:54] VITALS: BP 136/85
--- NOTE | 2020-04-12 16:45 | NUR ---
I have reviewed this patient and I concur with the Shift Assessment completed by the Licensed Practical Nurse today this shift.
[2020-04-12 17:45] VITALS: BP 110/80
[2020-04-12 18:04] LABS: HEMATOCRIT 34.8 % (42.0-54.0); HEMOGLOBIN 11.2 g/dL (13.5-17.5); LYMPHOCYTES 3.9 % (15-50); MCH 28.3 pg (26.0-34.0); MCHC 32.2 g/dL (31.0-37.0); MCV 87.9 fL (80.0-100.0); MEAN PLATELET VOLUME 9.7 fL (7.4-10.4); NEUTROPHILS 93.5 % (40-80); PLATELET COUNT 90 10x3/uL (130-400); RBC 3.96 10x6/uL (4.20-6.10); RDW 14.4 % (11.5-14.5); WBC 9.2 10x3/uL (4.8-10.8)
[2020-04-12 18:09] LABS: APTT 34.2 SECONDS (22.8-39.4); INR 1.48 (0.85-1.17); PROTIME 17.8 SECONDS (11.6-15.0)
--- NOTE | 2020-04-12 18:22 | NUR ---
A&O RESTING IN BED WITH EYES OPEN. NO C/O PAIN. NO S/S OF ACUTE DISTRESS NOTED. DENIES ANY NEEDS AT THIS TIME. CALL LIGHT IN REACH. WILL CONTINUE TO MONITOR.
--- NOTE | 2020-04-12 19:00 | NUR ---
BEDSIDE REPORT RECEIVED AND CARE OF PT ASSUMED. PT LYING IN HIGH CLAY'S POSITION WITH EYES CLOSED. O2 IN USE VIA NC AT 2L. IV TO RIGHT FA PATENT WITH NS INFUSING AT 50 ML/HR. TELEMETRY IN USE AND READING A-FIB AT THIS ASSESSMENT. WILL MONITOR FOR NEEDS.
[2020-04-12 20:00] VITALS: BP 130/85
--- NOTE | 2020-04-12 20:26 | NUR ---
HS MEDICATION GIVEN. WILL CONTINUE TO MONITOR FOR NEEDS.
--- NOTE | 2020-04-12 21:05 | NUR ---
TALKED TO SON, TANISHA, AND GAVE UPDATE ON ORDERED PROCEDURE IN AM.
[2020-04-13 04:00] VITALS: BP 145/81
[2020-04-13 05:34] LABS: HEMATOCRIT 35.1 % (42.0-54.0); HEMOGLOBIN 11.2 g/dL (13.5-17.5); LYMPHOCYTES 6.5 % (15-50); MCH 28.2 pg (26.0-34.0); MCHC 31.9 g/dL (31.0-37.0); MCV 88.4 fL (80.0-100.0); MEAN PLATELET VOLUME 10.2 fL (7.4-10.4); NEUTROPHILS 88.2 % (40-80); PLATELET COUNT 108 10x3/uL (130-400); RBC 3.97 10x6/uL (4.20-6.10); RDW 14.5 % (11.5-14.5); WBC 9.2 10x3/uL (4.8-10.8)
[2020-04-13 05:45] LABS: INR 1.22 (0.85-1.17); PROTIME 15.3 SECONDS (11.6-15.0)
[2020-04-13 06:03] LABS: ALBUMIN 1.9 g/dL (3.4-5.0); BILIRUBIN - TOTAL 0.64 mg/dL (0.2-1.3); CALCIUM 7.4 mg/dL (8.5-10.1); CARBON DIOXIDE 27.2 mmol/L (21.0-32.0); CREATININE - SERUM 1.3 mg/dL (0.6-1.3); POTASSIUM - SERUM 4.2 mmol/L (3.5-5.1); PROTEIN - SERUM 5.3 g/dL (6.4-8.2)
[2020-04-13 09:08] VITALS: BP 152/82
--- NOTE | 2020-04-13 11:32 | NUR ---
I have reviewed this patient and I concur with the Shift Assessment completed by the Licensed Practical Nurse today this shift.
[2020-04-13 13:06] VITALS: BP 145/84
--- NOTE | 2020-04-13 17:30 | MORECARE ---
CASE MANAGEMENT DISCHARGE SUMMARY PATIENT: NYDIA GANNON UNIT: [id number] ADM DATE: 04/01/20 AGE: 80 : 40 SEX: M ROOM/BED: D.2227 AUTHOR: LINETTEDOC PHYSICIAN: REFERRING PHYSICIAN: MICAH MADISON MD DATE OF SERVICE: 04/13/20 Discharge Plan Patient Name: NYDIA GANNON [facility]:[place] : 1940 Planned Disposition: Anticipated Discharge Date: Discharge Date: Expected LOS: Initial Reviewer: [id number] Initial Review Date: 04/01/2020 Generated: 04/13/20 6:30 pm Comments DCP- Discharge Planning Updated by [id number]: Abby Amin on 04/13/20 4:[address] Patient Name: NYDIA GANNON Encounter No: [id number] : 1940 Primary Insurance: MEDICARE A & B Grinder Dresser: :Abby Amin UR Note: JUAN SIGNED FOR [facility]. STATES HAVING BRONCH TODAY. Abby Amin DCP- Discharge Planning Updated by [email or web address]: Abby Amin on 04/09/20 5:[address] Patient Name: NYDIA GANNON Admission Status: Urgent Accout number: [id number] Admission Date: 04-01-2020 : 1940 Admission Diagnosis:DYSPNEA, UNSPECIFIED Attending: MICAH MADISON Current LOS: 8 Anticipated DC Date: Planned Disposition: Primary Insurance: MEDICARE A & B Discharge Planning Comments: SPOKE WITH PATIENT TODAY. HE PLANS TO GO HOME WHEN BETTER. HE HAS O2 FOR NIGHT TIME. WILL NEED WALK TEST FOR POSSIBLE O2 AT HOME. USES [facility] PATIENT. DOES NOT WANT HH OR REHAB. STATES HE IS CAPABLE OF DOING HIS OWN THERAPY. 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 I TALKED WITH DR. SOLORZANO AND POSSIBLE DC WILL BE MONDAY. CM TO FOLLOW AND ASSIST. Grinder Dresser: Abby Amin DCP- Discharge Planning Updated by [id number]: Abby Amin on 04/06/20 4:[address] Patient Name: NYDIA GANNON Admission Status: Urgent Accout number: [id number] Admission Date: 04-01-2020 : 1940 Admission Diagnosis:DYSPNEA, UNSPECIFIED Attending: MICAH MADISON Current LOS: 5 Anticipated DC Date: Planned Disposition: Primary Insurance: MEDICARE A & B Discharge Planning Comments: PATIENT HAS HOME 02 AND MOTORIZED WHEELCHAIR. MEDICAL RECORDS STATE PATIENT INDEPENDENT WITH ALL MOBILITY. STATES HE DOES NOT REQUIRED SKILLED PT. PATIENT IS AT HIS PLOF, AMBULATES HOUSEHOLD DISTANCES ONLY. USES A MOTORIZED WHEELCHAIR. LIVES AT HOME WITH SPOUSE. CM WILL FOLLOW AND ASSIST NEEDED WITH DC PLANNING/NEEDS. Grinder Dresser: Abby Amin Coverage Notice Reviewer: [id number] - Abby Amin Notice Issued Date-Time: 04/13/2020 17:27 Notice Type: Patient Choice Letter Notice Delivered To: Patient Relationship to Patient: Home Connect Lpn Name: Delivery Method: HAND - Hand Delivered Kate Days: Prior Verbal Notification: Recipient Understood Notice: Yes Recipient Signature: Yes Med Rec Note Co-signed by Attending: Coverage Notice Comment: JUAN FOR [facility] Last DP export: 04/09/20 5:30 pm Patient Name: NYDIA GANNON Page [phone] at 1730 All edits/amendments must be made on the electronic document DICTATION DATE: 04/13/20 1730 OVEN TENDER BAGELS: EDILIA 04/13/20 1730 RPT#: [id number] DC DATE: STATUS: ADM IN [facility] [address] [place] [address] END OF REPORT
[2020-04-13 18:04] VITALS: BP 126/78
[2020-04-13 20:00] VITALS: BP 129/76
[2020-04-14 04:00] VITALS: BP 134/80
[2020-04-14 06:44] LABS: ANION GAP 10.6 mmol/L (8-16); BILIRUBIN - TOTAL 1.1 mg/dL (0.2-1.3); CALCIUM 7.8 mg/dL (8.5-10.1); CARBON DIOXIDE 26.4 mmol/L (21.0-32.0); CREATININE - SERUM 1.2 mg/dL (0.6-1.3); MAGNESIUM - SERUM 1.9 mg/dL (1.8-2.4); PHOSPHOROUS 2.6 mg/dL (2.5-4.9)
[2020-04-14 06:45] LABS: HEMATOCRIT 36.8 % (42.0-54.0); HEMOGLOBIN 11.9 g/dL (13.5-17.5); LYMPHOCYTES 6.3 % (15-50); MCH 28.4 pg (26.0-34.0); MCHC 32.3 g/dL (31.0-37.0); MCV 87.8 fL (80.0-100.0); MEAN PLATELET VOLUME 10.2 fL (7.4-10.4); PLATELET COUNT 102 10x3/uL (130-400); RBC 4.19 10x6/uL (4.20-6.10); RDW 14.8 % (11.5-14.5); WBC 10.2 10x3/uL (4.8-10.8)
[2020-04-14 07:27] LABS: PROTEIN - SERUM 5.6 g/dL (6.4-8.2)
--- NOTE | 2020-04-14 08:21 | NUR ---
ALERT AND ORIENTED. LUNGS DIMINISHED TO BLL. HEART SOUNDS S1 AND S2 HEARD IN ALL HAMLIN. BOWEL SOUNDS ACTIVE X 4. DENIES NEEDS. BED LOW. BED ALARM ON. CALL BOWEN AND PERSONAL ITEMS IN REACH. WILL CONTINUE TO MONITOR.
[2020-04-14 13:00] VITALS: BP 144/83
--- NOTE | 2020-04-14 15:15 | NUR ---
RESTING IN BED. DENIES NEEDS. WILL CONTINUE TO MONITOR.
[2020-04-14 17:55] VITALS: BP 129/81
[2020-04-14 20:00] VITALS: BP 117/76
--- NOTE | 2020-04-14 20:00 | NUR ---
ALERT RESTING IN BED WATCHING TV, DENIES PAIN OR NEEDS AT THIS TIME, SEE SHIFT ASESSMENT, CALL LIGHT IN REACH
[2020-04-15 04:00] VITALS: BP 143/89
[2020-04-15 05:54] LABS: ALBUMIN 1.8 g/dL (3.4-5.0); ANION GAP 8.6 mmol/L (8-16); BILIRUBIN - TOTAL 0.53 mg/dL (0.2-1.3); CALCIUM 7.6 mg/dL (8.5-10.1); CARBON DIOXIDE 29.4 mmol/L (21.0-32.0); CREATININE - SERUM 1.2 mg/dL (0.6-1.3); PHOSPHOROUS 2.6 mg/dL (2.5-4.9); PROTEIN - SERUM 5.5 g/dL (6.4-8.2)
[2020-04-15 06:29] LABS: HEMATOCRIT 34.7 % (42.0-54.0); HEMOGLOBIN 11.2 g/dL (13.5-17.5); LYMPHOCYTES 5.6 % (15-50); MCH 28.4 pg (26.0-34.0); MCHC 32.3 g/dL (31.0-37.0); MCV 88.1 fL (80.0-100.0); MEAN PLATELET VOLUME 10.9 fL (7.4-10.4); NEUTROPHILS 89.8 % (40-80); PLATELET COUNT 96 10x3/uL (130-400); RBC 3.94 10x6/uL (4.20-6.10); RDW 14.5 % (11.5-14.5)
--- NOTE | 2020-04-15 07:44 | NUR ---
ALERT AND ORIENTED. LUNGS CLEAR BILATERALLY. HEART SOUNDS S1 AND S2 HEARD IN ALL HAMLIN. BOWEL SOUNDS ACTIVE X 4. DENIES NEEDS. BED LOW. CALL BOWEN AND PERSONAL ITEMS IN REACH. [facility] ONTINUE TO MONITOR.
[2020-04-15 08:30] VITALS: BP 153/81
[2020-04-15 12:00] VITALS: BP 147/91
--- NOTE | 2020-04-15 12:58 | NUR ---
RESTING IN BED. DENIES NEEDS. WILL CONTINUE TO MONITOR .
--- NOTE | 2020-04-15 14:24 | NUR ---
Nutrition follow-up: Pt with SOB on exertion Possible bronch today Diet: Regular as tolerated PO intake fair at this time Labs reviewed Wt: 137# Will continue to provide food choices and honor food preferences. Will offer nutritional supplement. RDN following.
[2020-04-15 16:40] VITALS: BP 134/67
--- NOTE | 2020-04-15 17:55 | NUR ---
CONSENTS OBTAINED FOR PROCEDURE.
[2020-04-15 20:00] VITALS: BP 149/87
--- NOTE | 2020-04-15 20:20 | NUR ---
SUPINE IN BED, A&O X 4. RESPIRATORY TX IN USE. REPORTS HE IS STILL DRINKING ON HIS MIRALAX FROM THIS MORNING SO HE WILL NOT BE NEEDING HIS NIGHTLY DOSE. NO OTHER NEEDS VOICED AT THIS TIME, CTM.
[2020-04-16] VITALS (7 sets, daily range): BP systolic 132–164; BP diastolic 66–114
--- NOTE | 2020-04-16 03:01 | NUR ---
I have reviewed this patient and I concur with the Shift Assessment completed by the Licensed Practical Nurse today this shift.
--- NOTE | 2020-04-16 05:00 | NUR ---
PT REPORTS HE IS CONCERNED ABOUT HIS RESPIRATORY STATUS REGARDING UNDERGOING BRONCHOSCOPY. PT HAS ALREADY SIGNED CONSENTS, BUT WILL NOT ALLOW BRONCHOSCOPY UNTIL DR COMES TO TALK TO HIM TO REASSURE HIM HE WILL BE OKAY.
[2020-04-16 05:03] LABS: HEMATOCRIT 34.1 % (42.0-54.0); HEMOGLOBIN 10.6 g/dL (13.5-17.5); LYMPHOCYTES 9.8 % (15-50); MCH 27.5 pg (26.0-34.0); MCHC 31.1 g/dL (31.0-37.0); MCV 88.6 fL (80.0-100.0); MEAN PLATELET VOLUME 10.4 fL (7.4-10.4); NEUTROPHILS 84.7 % (40-80); PLATELET COUNT 90 10x3/uL (130-400); RBC 3.85 10x6/uL (4.20-6.10); RDW 14.5 % (11.5-14.5); WBC 7.3 10x3/uL (4.8-10.8)
[2020-04-16 05:24] LABS: ALBUMIN 1.8 g/dL (3.4-5.0); ANION GAP 8.9 mmol/L (8-16); BILIRUBIN - TOTAL 0.46 mg/dL (0.2-1.3); CALCIUM 7.4 mg/dL (8.5-10.1); CARBON DIOXIDE 27.9 mmol/L (21.0-32.0); CREATININE - SERUM 1.2 mg/dL (0.6-1.3); PHOSPHOROUS 2.3 mg/dL (2.5-4.9); POTASSIUM - SERUM 3.8 mmol/L (3.5-5.1); PROTEIN - SERUM 5.4 g/dL (6.4-8.2)
--- NOTE | 2020-04-16 06:45 | NUR ---
PT DISPLAYING ANXIETY DUE TO ELEVATED BLOOD PRESSURE, STATED, "YEAH, I'M DEFINITELY NOT DOING THAT PROCEDURE TODAY!" CONSENTS PULLED FROM CHART TO BE GIVEN TO ONCOMING NURSE, WILL PASS IN REPORT.
--- NOTE | 2020-04-16 09:59 | NUR ---
PT A&O X4 SITTING UP IN BED. PT REFUSES TO HAVE BRONCHOSCOPY PROCEDURE TODAY. HE STATES THAT HE IS HAVING TROUBLE BREATHING. LUNG SOUNDS ARE DIMINISHED. PT C/O OCCASSIONAL COUGH, NO SPUTUM. PIV IN R FORARM, S/L, PATENT, NON TENDER, NO REDNESS OR SWELLING. PT ON 2L NC. PT WEARING GLASSES, HARD OF HEARING. MEREDITH CATHETER IN PLACE FOR URINE RETENTION, PATENT, YELLOW CLEAR URINE. PT WEARING TELEMETRY, 123 UNCONTROLLED AFIB. PT ABLE TO AMBULATE WITH ASSIST. PT ON ELECTROLYTE PROTOCOL, LABS SHOW LOW PHOS, PT NPO, CALLED LAB TO HAVE LOW PHOS IV MED DELIEVERED. EDUCATED ON CL AND NEEDS. PT VERBALIZED UNDERSTANDING. BED LOW, RAILS X2. CL IN REACH. WILL CONTINUE TO MONITOR.
--- NOTE | 2020-04-16 15:08 | NUR ---
TELEMETRY CALLED AND REPORTED PT HR AT 192. JAZLYN CASTAÑEDA IN ROOM WITH PT. REPORTED HR INCREASED TO DUE ACTIVITY. PT HR HAS RETURNED TO BASELINE. WILL CONTINUE TO MONITOR.
--- NOTE | 2020-04-16 19:45 | NUR ---
LYING IN BED WATCHING TV. STATES HE IS SLEEPY AND HOPES HE SLEEPS WELL TONIGHT. RESP IRREG. O2 @ 3.5L. TELEMETRY SHOWS AFIB WITH RATE OF 111. MEREDITH CATH PATENT AND DRAINING CLOUDY YELLOW URINE. SALINE LOCK NOTED TO RT FOREARM. DENIES PAIN . SR ELEVATED X2. CL IN REACH.
--- NOTE | 2020-04-17 02:53 | NUR ---
HAS RESTED WELL TONIGHT. RESP NONLABORED. LYING IN BED WITH EYES CLOSED. CL IN REACH.
[2020-04-17 04:00] VITALS: BP 151/82
[2020-04-17 06:48] LABS: BILIRUBIN - TOTAL 0.77 mg/dL (0.2-1.3); CALCIUM 7.6 mg/dL (8.5-10.1); CARBON DIOXIDE 26.9 mmol/L (21.0-32.0); CREATININE - SERUM 1.5 mg/dL (0.6-1.3); MAGNESIUM - SERUM 2.1 mg/dL (1.8-2.4); PROTEIN - SERUM 5.8 g/dL (6.4-8.2)
[2020-04-17 06:49] LABS: ANION GAP 10.5 mmol/L (8-16); PHOSPHOROUS 3.6 mg/dL (2.5-4.9); POTASSIUM - SERUM 4.4 mmol/L (3.5-5.1)
[2020-04-17 06:51] LABS: HEMATOCRIT 35.3 % (42.0-54.0); HEMOGLOBIN 11.2 g/dL (13.5-17.5); LYMPHOCYTES 12.9 % (15-50); MCH 28.3 pg (26.0-34.0); MCHC 31.7 g/dL (31.0-37.0); MCV 89.1 fL (80.0-100.0); MEAN PLATELET VOLUME 10.7 fL (7.4-10.4); NEUTROPHILS 80.7 % (40-80); PLATELET COUNT 89 10x3/uL (130-400); RBC 3.96 10x6/uL (4.20-6.10); RDW 14.9 % (11.5-14.5); WBC 7.4 10x3/uL (4.8-10.8)
--- NOTE | 2020-04-17 08:01 | NUR ---
ASSESSMENT PER FLOW SHEET. PATIENT DENIES PAIN AT PRESENT.FALL PREVENTION IN PLACE. CALL LIGHT IN REACH. DOOR OPEN
[2020-04-17 08:30] VITALS: BP 152/92
[2020-04-17 11:34] LABS: PLATELET ESTIMATE DECREASED
[2020-04-17 12:00] VITALS: BP 148/90
--- NOTE | 2020-04-17 14:21 | NUR ---
Nutrition consult: Pt has reported he is just not hungry. Pt receiving a regular diet; po intake x last 3 meals was recorded as 100% Labs reviewed Wt: 125# 3 day calorie count started Recommendations: - Start ProcalAmine PPN @ 75 ml/hr to provide some kcals and 54 gm protein - Start an appetite stimulant (Megace, Marinol, Remeron) A 3 day calorie count started. RDN will order Magic Cup with lunch, dinner Ensure with meals. Thank you for the consult. RDN following.
--- NOTE | 2020-04-17 15:26 | NUR ---
HAS REMAINED WITHOUT DISTRESS.DENIES NEEDS
--- NOTE | 2020-04-17 17:05 | MORECARE ---
CASE MANAGEMENT DISCHARGE SUMMARY PATIENT: NYDIA GANNON UNIT: [id number] ADM DATE: 04/01/20 AGE: 80 : 40 SEX: M ROOM/BED: D.2227 AUTHOR: LINETTE,DOC PHYSICIAN: REFERRING PHYSICIAN: MICAH MADISON MD DATE OF SERVICE: 04/17/20 Discharge Plan Patient Name: NYDIA GANNON Facility: [facility]:[place] : 1940 Planned Disposition: Anticipated Discharge Date: Discharge Date: Expected LOS: Initial Reviewer: [id number] Initial Review Date: 04/01/2020 Generated: 04/17/20 6:04 pm DCP- Discharge Planning Updated by [id number]: Abby Amin on 04/13/20 4:[address] Patient Name: NYDIA GANNON Encounter No: [id number] : 1940 Primary Insurance: MEDICARE A & B Health Informatics Specialist: :Abby Amin UR Note: JUAN SIGNED FOR [facility]. STATES HAVING BRONCH TODAY. Abby Amin DCP- Discharge Planning Updated by [id number]: Abby Amin on 04/09/20 5:[address] Patient Name: NYDIA GANNON Admission Status: Urgent Accout number: [id number] Admission Date: 04-01-2020 : 1940 Admission Diagnosis:DYSPNEA, UNSPECIFIED Attending: MICAH MADISON Current LOS: 8 Anticipated DC Date: Planned Disposition: Primary Insurance: MEDICARE A & B Discharge Planning Comments: SPOKE WITH PATIENT TODAY. HE PLANS TO GO HOME WHEN BETTER. HE HAS O2 FOR NIGHT TIME. WILL NEED WALK TEST FOR POSSIBLE O2 AT HOME. USES [facility] [place] [facility]. DOES NOT WANT HH OR REHAB. STATES HE IS CAPABLE OF DOING HIS OWN THERAPY. 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 I TALKED WITH DR. SOLORZANO AND POSSIBLE DC WILL BE MONDAY. CM TO FOLLOW AND ASSIST. Health Informatics Specialist: Abby Amin DCP- Discharge Planning Updated by [id number]: Abby Amin on 04/06/20 4:[address] Patient Name: NYDIA GANNON Admission Status: Urgent Accout number: [id number] Admission Date: 04-01-2020 : 1940 Admission Diagnosis:DYSPNEA, UNSPECIFIED Attending: MICAH MADISON Current LOS: 5 Anticipated DC Date: Planned Disposition: Primary Insurance: MEDICARE A & B Discharge Planning Comments: PATIENT HAS HOME 02 AND MOTORIZED WHEELCHAIR. MEDICAL RECORDS STATE PATIENT INDEPENDENT WITH ALL MOBILITY. STATES HE DOES NOT REQUIRED SKILLED PT. PATIENT IS AT HIS PLOF, AMBULATES HOUSEHOLD DISTANCES ONLY. USES A MOTORIZED WHEELCHAIR. LIVES AT HOME WITH SPOUSE. CM WILL FOLLOW AND ASSIST NEEDED WITH DC PLANNING/NEEDS. Health Informatics Specialist: Abby Amin Coverage Notice Reviewer: [id number] - Abby Amin Notice Issued Date-Time: 04/13/2020 17:27 Notice Type: Patient Choice Letter Notice Delivered To: Patient Relationship to Patient: Sr. Merchandise Planner Name: Delivery Method: HAND - Hand Delivered Kate Days: Prior Verbal Notification: Recipient Understood Notice: Yes Recipient Signature: Yes Med Rec Note Co-signed by Attending: Coverage Notice Comment: JUAN FOR [facility] Last DP export: 04/13/20 4:30 p Patient Name: NYDIA GANNON Page [phone] at 1705 All edits/amendments must be made on the electronic document DICTATION DATE: 04/17/20 170 CORE WINDER MACHINE OPERATOR: EDILIA 04/17/20 170 RPT#: [id number] DC DATE: STATUS: ADM IN [facility] [address] [place] [address] END OF REPORT
[2020-04-17 17:19] VITALS: BP 180/84
--- NOTE | 2020-04-17 18:20 | NUR ---
HAS REMAINED WITHOUT NEEDS.PATIENT IS WITHOUT CHANGE. CONT PLAN OF CARE
--- NOTE | 2020-04-17 19:00 | NUR ---
BEDSIDE REPORT RECEIVED AND CARE OF PT ASSUMED. PT LYING IN LOW CLAY'S POSITION WITH EYES CLOSED. IV TO RIGHT AC SALINE LOCKED. TELEMETRY IN PLACE AND READING UNCONTROLLED A-FIB AT THIS ASSESSMENT. MEREDITH CATHETER DRAINING TO GRAVITY WITH YELLOW URINE IN COLLECTION BAG. WILL MONITOR FOR NEEDS.
[2020-04-17 20:00] VITALS: BP 153/90
--- NOTE | 2020-04-17 20:44 | NUR ---
HS MEDICATIONS GIVEN. WILL CONTINUE TO MONITOR FOR NEEDS.
[2020-04-18] VITALS: BP 153/98
--- NOTE | 2020-04-18 02:10 | NUR ---
ALL LINENS AND GOWN CHANGED AND PT CLEANED UP DUE TO INCONTINENCE OF BOWEL. POSITIONED FOR COMFORT.
[2020-04-18 04:00] VITALS: BP 155/97
[2020-04-18 06:25] LABS: BASOPHILS 0 % (0-2); EOSINOPHILS 1.2 % (0-7); HEMATOCRIT 34.1 % (42.0-54.0); HEMOGLOBIN 10.4 g/dL (13.5-17.5); IMMATURE GRANULOCYTES 0.2 % (0-5); LYMPHOCYTES 14.4 % (15-50); MCH 27.4 pg (26.0-34.0); MCHC 30.5 g/dL (31.0-37.0); MCV 89.7 fL (80.0-100.0); MEAN PLATELET VOLUME 10.1 fL (7.4-10.4); MONOCYTES 3.5 % (2-11); NEUTROPHILS 80.7 % (40-80); PLATELET COUNT 84 10x3/uL (130-400); RDW 15.1 % (11.5-14.5)
[2020-04-18 06:27] LABS: WBC 4.3 10x3/uL (4.8-10.8)
[2020-04-18 06:51] LABS: PLATELET ESTIMATE DECREASED
[2020-04-18 07:03] LABS: CARBON DIOXIDE 27.3 mmol/L (21.0-32.0); CREATININE - SERUM 1.4 mg/dL (0.6-1.3); MAGNESIUM - SERUM 2.2 mg/dL (1.8-2.4); PHOSPHOROUS 3.1 mg/dL (2.5-4.9); POTASSIUM - SERUM 4.3 mmol/L (3.5-5.1)
[2020-04-18 08:00] VITALS: BP 158/92
--- NOTE | 2020-04-18 09:00 | NUR ---
ASSESSMENT PER FLOW SHEET. PATIENT IS WITHOUT DISTRESS.CALL LIGHT IN REACH. MONITOR FOR NEEDS
[2020-04-18 12:00] VITALS: BP 142/70
[2020-04-18 16:00] VITALS: BP 127/78
--- NOTE | 2020-04-18 18:25 | NUR ---
FEELING BETTER THIS AFTERNOON. HAD SOME SOB TODAY AND USED BIPAP FOR AWHILE. HE IS EATING ICE CHIPS WITHOUT DISTRESS AT PRESENT. CONT PLAN OF CARE
--- NOTE | 2020-04-18 19:00 | NUR ---
BEDSIDE REPORT RECEIVED AND CARE OF PT ASSUMED. PT LYING IN HIGH CLAY'S POSITION WITH EYES CLOSED AND EASY RESPIRATIONS. IV TO RIGHT AC SALINE LOCKED. O2 IN USE VIA NC AT 1.[address] PER ORDER. MEREDITH CATHETER DRAINING TO GRAVITY WITH YELLOW URINE IN COLLECTION BAG. WILL MONITOR FOR NEEDS.
[2020-04-18 20:00] VITALS: BP 146/86
--- NOTE | 2020-04-18 20:40 | NUR ---
HS MEDICATIONS GIVEN. WILL CONTINUE TO MONITOR FOR NEEDS.
--- NOTE | 2020-04-18 21:00 | NUR ---
GAVE HS SNACK OF X2 CHOCOLATE PUDDINGS.
[2020-04-19 01:50] VITALS: BP 140/82
[2020-04-19 04:00] VITALS: BP 147/80
[2020-04-19 06:16] LABS: BASOPHILS 0 % (0-2); EOSINOPHILS 1.5 % (0-7); HEMATOCRIT 34.1 % (42.0-54.0); HEMOGLOBIN 10.6 g/dL (13.5-17.5); IMMATURE GRANULOCYTES 0.4 % (0-5); LYMPHOCYTES 11.7 % (15-50); MCH 27.5 pg (26.0-34.0); MCHC 31.1 g/dL (31.0-37.0); MCV 88.6 fL (80.0-100.0); MEAN PLATELET VOLUME 10.5 fL (7.4-10.4); MONOCYTES 4.7 % (2-11); NEUTROPHILS 81.7 % (40-80); RBC 3.85 10x6/uL (4.20-6.10); RDW 15.1 % (11.5-14.5); WBC 4.7 10x3/uL (4.8-10.8)
[2020-04-19 06:19] LABS: PLATELET COUNT 85 10x3/uL (130-400)
[2020-04-19 06:51] LABS: ANION GAP 10.2 mmol/L (8-16); CARBON DIOXIDE 30.2 mmol/L (21.0-32.0); CREATININE - SERUM 1.2 mg/dL (0.6-1.3); PHOSPHOROUS 3.2 mg/dL (2.5-4.9); POTASSIUM - SERUM 4.4 mmol/L (3.5-5.1)
[2020-04-19 09:04] VITALS: BP 150/94
--- NOTE | 2020-04-19 10:45 | NUR ---
PT LAYING IN BED, A&O X4. PIV IN RIGHT AC, SALINE LOCKED, PATENT, NO REDNESS OR SWELLING. PT WEARING GLASSES AND STATES BEING [place] OF PICURIS. PT ON NC 1.5 L, O2 SAT 98%. PT ON TELEMETRY, HR 135, UNCONTROLLED A-FLUTTER. PT HAS MEREDITH CATHETER IN PLACE FOR ACUTE RETENTION, CLOUDY YELLOW URINE OUTPUT. PT HAS BILAT BRUISING ON LOWER EXTREMITIES AND REDNESS ON BOTTOM, BLANCHABLE, APPLIED CREAM. PT ABLE TO AMBULATE WITH ASSIST. FALL PRECAUTIONS ARE IN PLACE. EDUCATED PT ON CL, VERBALIZED UNDERSTANDING. BED LOW, RAILS X2. CL IN REACH, WILL CONTINUR TO MONITOR.
--- NOTE | 2020-04-19 11:17 | NUR ---
CALORIE COUNT: 04/17/20 kcal protein Breakfast 0 0 Lunch 250 10 Dinner 325 15 Total 575 kcal 25 gm protein 04/18/20 Breakfast 355 18 Lunch 575 20 Dinner 0 0 ____ Total 930 kcal 38 gm protein Pt is not meeting estimated energy needs with current PO intake. If medically feasible and pt agrees may need to consider NGT vs PEG tube placement and nutrition support. RDN following.
[2020-04-19 13:00] VITALS: BP 135/83
--- NOTE | 2020-04-19 13:49 | NUR ---
TELEMETRY CALLED AND PT HAD RUN OF V-TACH. CHECKED PT, HE WAS ON PHONE, SITTING UP IN BED A&O X4. REQUESTED CONSULT WITH CARDIO. BED LOW, RAILS X2. CL IN REACH, WILL CONTINUE TO MONITOR.
[2020-04-19 16:00] VITALS: BP 150/78
--- NOTE | 2020-04-19 19:00 | NUR ---
BEDSIDE REPORT RECEIVED AND CARE OF PT ASSUMED. PT LYING IN HIGH CLAY'S POSITION WITH EYES CLOSED AND EASY RESPIRATIONS. O2 IN USE VIA NC AT 1.5L. TELEMETRY IN USE PER ORDER AND READING 104 UNCONTROLLED A-FIB. MEREDITH CATHETER DRAINING TO GRAVITY WITH YELLOW URINE IN COLLECTION BAG. WILL MONITOR FOR NEEDS.
[2020-04-19 20:00] VITALS: BP 138/82
--- NOTE | 2020-04-19 20:55 | NUR ---
PT WITH MODERATE NOSE BLEED. CLEANSED FACE AND HELD COLD, WET CLOTH OVER NOSE TO STOP BLEEDING. CALLED RT TO REQUEST HUMIDIFICATION...ISHMAEL ON THE FLOOR NOW.
--- NOTE | 2020-04-19 20:59 | NUR ---
HS MEDICATIONS GIVEN. WILL CONTINUE TO MONITOR FOR NEEDS.
[2020-04-20] VITALS: BP 135/78
[2020-04-20 04:00] VITALS: BP 150/81
[2020-04-20 05:20] LABS: BASOPHILS 0.2 % (0-2); EOSINOPHILS 1.2 % (0-7); HEMOGLOBIN 10.8 g/dL (13.5-17.5); IMMATURE GRANULOCYTES 0.2 % (0-5); LYMPHOCYTES 13.1 % (15-50); MCH 27.6 pg (26.0-34.0); MCHC 30.9 g/dL (31.0-37.0); MCV 89.5 fL (80.0-100.0); MEAN PLATELET VOLUME 10.8 fL (7.4-10.4); MONOCYTES 4.3 % (2-11); PLATELET COUNT 88 10x3/uL (130-400); RBC 3.91 10x6/uL (4.20-6.10); RDW 14.9 % (11.5-14.5); WBC 5.1 10x3/uL (4.8-10.8)
[2020-04-20 05:28] LABS: PLATELET ESTIMATE DECREASED
[2020-04-20 05:49] LABS: ANION GAP 4.7 mmol/L (8-16); CALCIUM 8.3 mg/dL (8.5-10.1); CREATININE - SERUM 1.2 mg/dL (0.6-1.3); MAGNESIUM - SERUM 2.1 mg/dL (1.8-2.4); PHOSPHOROUS 3.8 mg/dL (2.5-4.9); POTASSIUM - SERUM 4.7 mmol/L (3.5-5.1)
[2020-04-20 08:00] VITALS: BP 148/77
[2020-04-20 12:25] VITALS: BP 143/76
[2020-04-20 16:56] VITALS: BP 119/62
--- NOTE | 2020-04-20 19:00 | NUR ---
BEDSIDE REPORT RECEIVED AND CARE OF PT ASSUMED. PT LYING IN HIGH CLAY'S POSITION WITH EYES CLOSED. IV TO RIGHT AC SALINE LOCKED. TELEMETRY IN PLACE PER ORDER. WILL MONITOR FOR NEEDS.
[2020-04-20 20:00] VITALS: BP 154/89
--- NOTE | 2020-04-20 20:35 | NUR ---
HS MEDICATIONS GIVEN. WILL CONTINUE TO MONITOR FOR NEEDS.
[2020-04-21 05:46] LABS: ANION GAP 5.7 mmol/L (8-16); CALCIUM 8.5 mg/dL (8.5-10.1); CARBON DIOXIDE 34.9 mmol/L (21.0-32.0); CREATININE - SERUM 1.3 mg/dL (0.6-1.3); MAGNESIUM - SERUM 2.1 mg/dL (1.8-2.4); PHOSPHOROUS 3.3 mg/dL (2.5-4.9); POTASSIUM - SERUM 4.6 mmol/L (3.5-5.1)
[2020-04-21 08:00] VITALS: BP 100/72
[2020-04-21 08:24] LABS: BASOPHILS 0.2 % (0-2); EOSINOPHILS 1.3 % (0-7); HEMATOCRIT 33.8 % (42.0-54.0); HEMOGLOBIN 10.5 g/dL (13.5-17.5); IMMATURE GRANULOCYTES 0.2 % (0-5); MCHC 31.1 g/dL (31.0-37.0); MCV 90.1 fL (80.0-100.0); MEAN PLATELET VOLUME 10.4 fL (7.4-10.4); NEUTROPHILS 79.3 % (40-80); PLATELET COUNT 106 10x3/uL (130-400); RBC 3.75 10x6/uL (4.20-6.10); RDW 15.1 % (11.5-14.5); WBC 5.4 10x3/uL (4.8-10.8)
[2020-04-21 11:59] VITALS: BP 153/87
[2020-04-21] MEDS ORDERED: PERFOROMIS20 MCG/21 UPD (12:12)
[2020-04-21] MEDS ORDERED: ALBUTEROL2.5 MG/3 M INH (12:12)
[2020-04-21] MEDS ORDERED: IPRAT-ALBUT 0.5-3 ML UPD (12:12)
[2020-04-21] MEDS ORDERED: MUCINEX DM ER1 EAC1 PO (12:12)
[2020-04-21] MEDS ORDERED: PULMICORT0.5 MG/21 UPD (12:13)
--- NOTE | 2020-04-21 13:43 | MORECARE ---
CASE MANAGEMENT DISCHARGE SUMMARY PATIENT: NYDIA GANNON UNIT: [id number] ADM DATE: 04/01/20 AGE: 80 : 40 SEX: M ROOM/BED: D.2227 AUTHOR: LINETTEDOC PHYSICIAN: REFERRING PHYSICIAN: MICAH MADISON MD DATE OF SERVICE: 04/21/20 Discharge Plan Patient Name: NYDIA GANNON Facility: [facility]:[place] : 1940 Planned Disposition: Anticipated Discharge Date: Discharge Date: Expected LOS: Initial Reviewer: [id number] Initial Review Date: 04/01/2020 Generated: 04/21/20 2:42 pm DCP- Discharge Planning Updated by [email or web address]: Abby Amin on 04/13/20 4:[address] Patient Name: NYDIA GANNON Encounter No: [id number] : 1940 Primary Insurance: MEDICARE A & B Electric Hoist Operator: :Abby Amin UR Note: [facility]. STATES HAVING BRONCH TODAY. Abby Amin DCP- Discharge Planning Updated by [id number]: Abby Amin on 04/09/20 5:[address] Patient Name: NYDIA GANNON Admission Status: Urgent Accout number: [id number] Admission Date: 04-01-2020 : 1940 Admission Diagnosis:DYSPNEA, UNSPECIFIED Attending: MICAH MADISON Current LOS: 8 Anticipated DC Date: Planned Disposition: Primary Insurance: MEDICARE A & B Discharge Planning Comments: SPOKE WITH PATIENT TODAY. HE PLANS TO GO HOME WHEN BETTER. HE HAS O2 FOR NIGHT TIME. WILL NEED WALK TEST FOR POSSIBLE O2 AT HOME. USES [facility] PATIENT. DOES NOT WANT HH OR REHAB. STATES HE IS CAPABLE OF DOING HIS OWN THERAPY. 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 I TALKED WITH DR. SOLORZANO AND POSSIBLE DC WILL BE MONDAY. CM TO FOLLOW AND ASSIST. Electric Hoist Operator: Abby Amin DCP- Discharge Planning Updated by [id number]: Abby Amin on 04/06/20 4:[address] Patient Name: NYDIA GANNON Admission Status: Urgent Accout number: [id number] Admission Date: 04-01-2020 : 1940 Admission Diagnosis:DYSPNEA, UNSPECIFIED Attending: MICAH MADISON Current LOS: 5 Anticipated DC Date: Planned Disposition: Primary Insurance: MEDICARE A & B Discharge Planning Comments: PATIENT HAS HOME 02 AND MOTORIZED WHEELCHAIR. MEDICAL RECORDS STATE PATIENT INDEPENDENT WITH ALL MOBILITY. STATES HE DOES NOT REQUIRED SKILLED PT. PATIENT IS AT HIS PLOF, AMBULATES HOUSEHOLD DISTANCES ONLY. USES A MOTORIZED WHEELCHAIR. LIVES AT HOME WITH SPOUSE. CM WILL FOLLOW AND ASSIST NEEDED WITH DC PLANNING/NEEDS. Electric Hoist Operator: Abby Amin External Providers External Provider: [facility] Next Contact Date: Service Request Date: Service Type: Resolution: Reviewer: Comments: [facility] Next Contact Date: Service Request Date: Service Type: Resolution: Reviewer: Comments: Coverage Notice Reviewer: [id number] Amin Notice Issued Date-Time: 04/13/2020 17:27 Notice Type: Patient Choice Letter Notice Delivered To: Patient Relationship to Patient: Public Health Aides Teacher Name: Delivery Method: HAND - Hand Delivered Kate Days: Prior Verbal Notification: Recipient Understood Notice: Yes Recipient Signature: Yes Med Rec Note Co-signed by Attending: Coverage Notice Comment: [facility] Reviewer: [id number] Amin Notice Issued Date-Time: 04/21/2020 13:34 Notice Type: IM Discharge Notice Notice Delivered To: Relationship to Patient: Public Health Aides Teacher Name: Delivery Method: HAND - Hand Delivered Ktae Days: Prior Verbal Notification: Recipient Understood Notice: Yes Recipient Signature: Yes Med Rec Note Co-signed by Attending: Coverage Notice Comment: Reviewer: [id number] Amin Notice Issued Date-Time: 04/21/2020 13:34 Notice Type: Patient Choice Letter Notice Delivered To: Patient Relationship to Patient: Public Health Aides Teacher Name: Delivery Method: - Kate Days: Prior Verbal Notification: Recipient Understood Notice: Recipient Signature: Med Rec Note Co-signed by Attending: Coverage Notice Comment: Last DP export: 04/17/20 4:05 p Patient Name: NYDIA GANNON Page 18581 at 1343 All edits/amendments must be made on the electronic document DICTATION DATE: 04/21/20 1342 COTTON WEIGHER: EDILIA 04/21/20 1342 RPT#: [id number] DC DATE: STATUS: ADM IN [facility] [address] [place] [address] END OF REPORT
--- NOTE | 2020-04-21 13:57 | MORECARE ---
CASE MANAGEMENT DISCHARGE SUMMARY PATIENT: NYDIA GANNON UNIT: [id number] ADM DATE: 04/01/20 AGE: 80 : 40 SEX: M ROOM/BED: D.2227 AUTHOR: LINETTEDOC PHYSICIAN: REFERRING PHYSICIAN: MICAH MADISON MD DATE OF SERVICE: 04/21/20 Discharge Plan Patient Name: NYDIA GANNON Facility: [facility]:[place] : 1940 Planned Disposition: Anticipated Discharge Date: Discharge Date: Expected LOS: Initial Reviewer: [id number] Initial Review Date: 04/01/2020 Generated: 04/21/20 2:57 pm Comments DCP- Discharge Planning Updated by [id number]: Abby Amin on 04/21/20 12:[address] Patient Name: NYDIA GANNON Admission Status: Urgent Accout number: [id number] Admission Date: 04-01-2020 : 1940 Admission Diagnosis:DYSPNEA, UNSPECIFIED Attending: MICAH MADISON Current LOS: 20 Anticipated DC Date: Planned Disposition: Primary Insurance: MEDICARE A & B Discharge Planning Comments: PATIENT TO DC TO HOME TODAY. JUAN SIGNED FOR [facility]. HAS 02 WITH [facility]IENT BUT MAY NEED CONTINOUSE O2. WALK TEST ORDERED AND WILL FAX RESULTS TO [facility] PATIENT AT [phone]. IMM SIGNED. WATING CALL BACK FROM [facility]. CM TO FOLLOW AND ASSIST. Count Team Clerk: Abby Amin DCP- Discharge Planning Updated by [id number]: Abby Amin on 04/13/20 4:[address] Patient Name: NYDIA GANNON Encounter No: [id number] : 1940 Primary Insurance: MEDICARE A & B Count Team Clerk: :Abby Amin UR Note: JUAN SIGNED FOR [facility]. STATES HAVING BRONCH TODAY. Abby Amin DCP- Discharge Planning Updated by [id number]: Abby Amin on 04/09/20 5:[address] Patient Name: NYDIA GANNON Admission Status: Urgent Accout number: [id number] Admission Date: 04-01-2020 : 1940 Admission Diagnosis:DYSPNEA, UNSPECIFIED Attending: MICAH MADISON Current LOS: 8 Anticipated DC Date: Planned Disposition: Primary Insurance: MEDICARE A & B Discharge Planning Comments: SPOKE WITH PATIENT TODAY. HE PLANS TO GO HOME WHEN BETTER. HE HAS O2 FOR NIGHT TIME. WILL NEED WALK TEST FOR POSSIBLE O2 AT HOME. USES [facility]IENT. DOES NOT WANT HH OR REHAB. STATES HE IS CAPABLE OF DOING HIS OWN THERAPY. 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 I TALKED WITH DR. SOLORZANO AND POSSIBLE DC WILL BE MONDAY. CM TO FOLLOW AND ASSIST. Count Team Clerk: Abby Amin DCP- Discharge Planning Updated by [id number]: Abby Amin on 04/06/20 4:[address] Patient Name: NYDIA GANNON Admission Status: Urgent Accout number: [id number] Admission Date: 04-01-2020 : 1940 Admission Diagnosis:DYSPNEA, UNSPECIFIED Attending: MICAH MADISON Current LOS: 5 Anticipated DC Date: Planned Disposition: Primary Insurance: MEDICARE A & B Discharge Planning Comments: PATIENT HAS HOME 02 AND MOTORIZED WHEELCHAIR. MEDICAL RECORDS STATE PATIENT INDEPENDENT WITH ALL MOBILITY. STATES HE DOES NOT REQUIRED SKILLED PT. PATIENT IS AT HIS PLOF, AMBULATES HOUSEHOLD DISTANCES ONLY. USES A MOTORIZED WHEELCHAIR. LIVES AT HOME WITH SPOUSE. CM WILL FOLLOW AND ASSIST NEEDED WITH DC PLANNING/NEEDS. Count Team Clerk: Abby Amin Coverage Notice Reviewer: [id number] - Abby Amin Notice Issued Date-Time: 04/21/2020 13:34 Notice Type: Patient Choice Letter Notice Delivered To: Patient Relationship to Patient: Ict Managers Name: Delivery Method: - Kate Days: Prior Verbal Notification: Recipient Understood Notice: Recipient Signature: Med Rec Note Co-signed by Attending: Coverage Notice Comment: Reviewer: [id number] Stephan Amin Notice Issued Date-Time: 04/13/2020 17:27 Notice Type: Patient Choice Letter Notice Delivered To: Patient Relationship to Patient: Ict Managers Name: Delivery Method: HAND - Hand Delivered Kate Days: Prior Verbal Notification: Recipient Understood Notice: Yes Recipient Signature: Yes Med Rec Note Co-signed by Attending: Coverage Notice Comment: JUAN FOR [facility] Reviewer: [id number] Stephan Amin Notice Issued Date-Time: 04/21/2020 13:34 Notice Type: IM Discharge Notice Notice Delivered To: Relationship to Patient: Ict Managers Name: Delivery Method: HAND - Hand Delivered Kate Days: Prior Verbal Notification: Recipient Understood Notice: Yes Recipient Signature: Yes Med Rec Note Co-signed by Attending: Coverage Notice Comment: Last DP export: 04/21/20 12:43 p Patient Name: NYDIA GANNON Page 25694 at 1357 All edits/amendments must be made on the electronic document DICTATION DATE: 04/21/20 1352 DIVISIONAL HUMAN RESOURCES DIRECTOR: EDILIA 04/21/20 1357 RPT#: [id number] DC DATE: STATUS: ADM IN [facility] [address] [place] [address] END OF REPORT
[2020-04-21 16:58] VITALS: BP 147/87
--- NOTE | 2020-04-21 17:55 | MORECARE ---
CASE MANAGEMENT DISCHARGE SUMMARY PATIENT: NYDIA GANNON UNIT: [id number] ADM DATE: 04/01/20 AGE: 80 : 40 SEX: M ROOM/BED: D.2227 AUTHOR: LINETTEDOC PHYSICIAN: REFERRING PHYSICIAN: MICAH MADISON MD DATE OF SERVICE: 04/21/20 Discharge Plan Patient Name: NYDIA GANNON Facility: [facility]:[place] : 1940 Planned Disposition: Anticipated Discharge Date: Discharge Date: Expected LOS: Initial Reviewer: [email or web address] Initial Review Date: 04/01/2020 Generated: 04/21/20 6:55 pm Comments DCP- Discharge Planning Updated by [id number]: Abby Amin on 04/21/20 4:[address] Patient Name: NYDIA GANNON Admission Status: Urgent Accout number: [id number] Admission Date: 04-01-2020 : 1940 Admission Diagnosis:DYSPNEA, UNSPECIFIED Attending: MICAH MADISON Current LOS: 20 Anticipated DC Date: Planned Disposition: Primary Insurance: MEDICARE A & B Discharge Planning Comments: SPOKE WITH PATIENT'S SON TANISHA AND HE STATES HIM AND HIS BROTHER WILL NOT PICK HIM UP TO DC TO HOME. STATES HE CANNOT TAKE CARE OF HIMSELF UNTIL HE GETS STRONGER. BUT THEIR FATHER IS VERY STRONG WILLED. I SPOKE WITH DR. SOLORZANO AND HE STATES PATIENT WILL PARTICIPATE IN PT AND AGREE TO GO TO [facility]. ANTICIPATE DC IN THE MORNING. Drying Can Worker: Abby Amin DCP- Discharge Planning Updated by [id number]: Abby Amin on 04/21/20 12:[address] Patient Name: NYDIA GANNON Admission Status: Urgent Accout number: [id number] Admission Date: 04-01-2020 : 1940 Admission Diagnosis:DYSPNEA, UNSPECIFIED Attending: MICAH MADISON Current LOS: 20 Anticipated DC Date: Planned Disposition: Primary Insurance: MEDICARE A & B Discharge Planning Comments: PATIENT TO DC TO HOME TODAY. JUAN SIGNED FOR [facility]. HAS 02 WITH [facility] PATIENT BUT MAY NEED CONTINOUSE O2. WALK TEST ORDERED AND WILL FAX RESULTS TO [facility] PATIENT AT [phone]. IMM SIGNED. WATING CALL BACK FROM [facility]. CM TO FOLLOW AND ASSIST. Drying Can Worker: Abby Amin DCP- Discharge Planning Updated by [id number]: Abby Amin on 04/13/20 4:[address] Patient Name: NYDIA GANNON Encounter No: [id number] : 1940 Primary Insurance: MEDICARE A & B Drying Can Worker: :Abby Amin UR Note: JUAN SIGNED FOR [facility]. STATES HAVING BRONCH TODAY. Abby Amin DCP- Discharge Planning Updated by [id number]: Abby Amin on 04/09/20 5:[address] Patient Name: NYDIA GANNON Admission Status: Urgent Accout number: [id number] Admission Date: 04-01-2020 : 1940 Admission Diagnosis:DYSPNEA, UNSPECIFIED Attending: MICAH MADISON Current LOS: 8 Anticipated DC Date: Planned Disposition: Primary Insurance: MEDICARE A & B Discharge Planning Comments: SPOKE WITH PATIENT TODAY. HE PLANS TO GO HOME WHEN BETTER. HE HAS O2 FOR NIGHT TIME. WILL NEED WALK TEST FOR POSSIBLE O2 AT HOME. USES [facility] PATIENT. DOES NOT WANT HH OR REHAB. STATES HE IS CAPABLE OF DOING HIS OWN THERAPY. 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 I TALKED WITH DR. SOLORZANO AND POSSIBLE DC WILL BE MONDAY. CM TO FOLLOW AND ASSIST. Drying Can Worker: Abby Amin DCP- Discharge Planning Updated by [id number]: Abby Amin on 04/06/20 4:[address] Patient Name: NYDIA GANNON Admission Status: Urgent Accout number: [id number] Admission Date: 04-01-2020 : 1940 Admission Diagnosis:DYSPNEA, UNSPECIFIED Attending: MICAH MADISON Current LOS: 5 Anticipated DC Date: Planned Disposition: Primary Insurance: MEDICARE A & B Discharge Planning Comments: PATIENT HAS HOME 02 AND MOTORIZED WHEELCHAIR. MEDICAL RECORDS STATE PATIENT INDEPENDENT WITH ALL MOBILITY. STATES HE DOES NOT REQUIRED SKILLED PT. PATIENT IS AT HIS PLOF, AMBULATES HOUSEHOLD DISTANCES ONLY. USES A MOTORIZED WHEELCHAIR. LIVES AT HOME WITH SPOUSE. CM WILL FOLLOW AND ASSIST NEEDED WITH DC PLANNING/NEEDS. Drying Can Worker: Abby Amin Coverage Notice Reviewer: [id number] - Abby Amin Notice Issued Date-Time: 04/13/2020 17:27 Notice Type: Patient Choice Letter Notice Delivered To: Patient Relationship to Patient: Senior Science Consultant Name: Delivery Method: HAND - Hand Delivered Kate Days: Prior Verbal Notification: Recipient Understood Notice: Yes Recipient Signature: Yes Med Rec Note Co-signed by Attending: Coverage Notice Comment: [facility] Reviewer: [id number] Stephan Amin Notice Issued Date-Time: 04/21/2020 13:34 Notice Type: IM Discharge Notice Notice Delivered To: Relationship to Patient: Senior Science Consultant Name: Delivery Method: HAND - Hand Delivered Kate Days: Prior Verbal Notification: Recipient Understood Notice: Yes Recipient Signature: Yes Med Rec Note Co-signed by Attending: Coverage Notice Comment: Reviewer: [id number] mAin Notice Issued Date-Time: 04/21/2020 13:34 Notice Type: Patient Choice Letter Notice Delivered To: Patient Relationship to Patient: Senior Science Consultant Name: Delivery Method: - Kate Days: Prior Verbal Notification: Recipient Understood Notice: Recipient Signature: Med Rec Note Co-signed by Attending: Coverage Notice Comment: Last DP export: 04/21/20 12:57 p Patient Name: NYDIA GANNON Page 98005 at 1755 All edits/amendments must be made on the electronic document DICTATION DATE: 04/21/201754 ELEVATOR INSTALLER APPRENTICE: EDILIA 04/21/201754 RPT#: [id number] DC DATE: STATUS: ADM IN [facility] [address] [place] [address] END OF REPORT
--- NOTE | 2020-04-21 19:16 | NUR ---
PATIENT WAS SUPPOSE TO BE DISCHARGED. SON CAME UP AND SAID PATIENT WOULD NOT BE ABLE TO GO [facility] BY SELF. CM SPOKE WITH PATIENT AND SON AND PATIENT IS NO GOING TO TRY TO GO TO REHAB TOMORROW. PATIENT IN BED WITH MEREDITH INTACT. CALL LIGHT WITHIN REACH.
--- NOTE | 2020-04-21 20:20 | NUR ---
INCONT OF BOWELS. REFUSES TO LET STAFF PERFORM PERICARE. PT INSISTS ON CLEANING HIMSELF UP IN HIS BED. ALERT AND ORIENTED X4. RESP IRREG. SOB WITH EXERTION. O2 @ 3L/NC. TELEMETRY SHOWS AFTIB WITH RATE OF 101. BRUISES NOTED TO BUE AND BLE. MEREDITH CATH PATENT AND DRAINING ZULY URINE. PROD COUGH NOTED. SALINE LOCK NOTED TO RT FOREARM. DENIES PAIN. SR ELEVATED X2. CL IN REACH.
[2020-04-21 21:16] VITALS: BP 124/61
[2020-04-22] VITALS: BP 126/75
--- NOTE | 2020-04-22 01:09 | NUR ---
LYING IN BED WITH EYES CLOSED. RESP NONLABORED. NO DISTRESS. CL IN REACH. HAS RESTED WELL SO FAR.
[2020-04-22 04:00] VITALS: BP 124/82
[2020-04-22 04:53] LABS: BASOPHILS 0.2 % (0-2); EOSINOPHILS 1.4 % (0-7); HEMATOCRIT 34.6 % (42.0-54.0); HEMOGLOBIN 10.7 g/dL (13.5-17.5); IMMATURE GRANULOCYTES 0.3 % (0-5); LYMPHOCYTES 15.9 % (15-50); MCH 27.4 pg (26.0-34.0); MCHC 30.9 g/dL (31.0-37.0); MCV 88.7 fL (80.0-100.0); MEAN PLATELET VOLUME 10.1 fL (7.4-10.4); MONOCYTES 4.7 % (2-11); NEUTROPHILS 77.5 % (40-80); PLATELET COUNT 108 10x3/uL (130-400); WBC 5.7 10x3/uL (4.8-10.8)
[2020-04-22 05:07] LABS: ANION GAP 6.1 mmol/L (8-16); CALCIUM 8.2 mg/dL (8.5-10.1); CARBON DIOXIDE 35.3 mmol/L (21.0-32.0); CREATININE - SERUM 1.3 mg/dL (0.6-1.3); MAGNESIUM - SERUM 1.9 mg/dL (1.8-2.4); PHOSPHOROUS 3.6 mg/dL (2.5-4.9); POTASSIUM - SERUM 4.4 mmol/L (3.5-5.1)
--- NOTE | 2020-04-22 08:35 | NUR ---
PT ALERT AND ORIENTED X4 UPON ENTERING, UP RIGHT IN BED WITH BREAKFAST. ADMINISTERED MEDICATION, NO DIFFICULTIES. DENIES ANY NEEDS. BED IN LOWEST POSITION, BED RAILS X2, CALL LIGHT WITHIN REACH. WILL CONTINUE TO MONITOR.
[2020-04-22 08:44] VITALS: BP 121/83
--- NOTE | 2020-04-22 12:43 | MORECARE ---
CASE MANAGEMENT DISCHARGE SUMMARY PATIENT: NYDIA GANNON UNIT: [id number] ADM DATE: 04/01/20 AGE: 80 : 40 SEX: M ROOM/BED: D.2227 AUTHOR: LINETTEDOC PHYSICIAN: REFERRING PHYSICIAN: MICAH MADISON MD DATE OF SERVICE: 04/22/20 Discharge Plan Patient Name: NYDIA GANNON Facility: [facility]:[place] : 1940 Planned Disposition: Anticipated Discharge Date: Discharge Date: Expected LOS: Initial Reviewer: [id number] Initial Review Date: 04/01/2020 Generated: 04/22/20 1:43 pm Comments DCP- Discharge Planning Updated by [id number]: Abby Amin on 04/21/20 4:[address] Patient Name: NYDIA GANNON Admission Status: Urgent Accout number: [id number] Admission Date: 04-01-2020 : 1940 Admission Diagnosis:DYSPNEA, UNSPECIFIED Attending: MICAH MADISON Current LOS: 20 Anticipated DC Date: Planned Disposition: Primary Insurance: MEDICARE A & B Discharge Planning Comments: SPOKE WITH PATIENT'S SON TANISHA AND HE STATES HIM AND HIS BROTHER WILL NOT PICK HIM UP TO DC TO HOME. STATES HE CANNOT TAKE CARE OF HIMSELF UNTIL HE GETS STRONGER. BUT THEIR FATHER IS VERY STRONG WILLED. I SPOKE WITH DR. SOLORZANO AND HE STATES PATIENT WILL PARTICIPATE IN PT AND AGREE TO GO TO [facility]. ANTICIPATE DC IN THE MORNING. Senior Sales Associate: Abby Amin DCP- Discharge Planning Updated by [id number]: Abby Amin on 04/21/20 12:[address] Patient Name: NYDIA GANNON Admission Status: Urgent Accout number: [id number] Admission Date: 04-01-2020 : 1940 Admission Diagnosis:DYSPNEA, UNSPECIFIED Attending: MICAH MADISON Current LOS: 20 Anticipated DC Date: Planned Disposition: Primary Insurance: MEDICARE A & B Discharge Planning Comments: PATIENT TO DC TO HOME TODAY. JUAN [facility]. HAS [facility] WITH [facility] BUT MAY NEED CONTINOUSE O2. WALK TEST ORDERED AND WILL FAX RESULTS TO [facility]IENT AT [phone]. IMM SIGNED. WATING CALL BACK FROM [facility]. CM TO FOLLOW AND ASSIST. Senior Sales Associate: Abby Amin DCP- Discharge Planning Updated by [email or web address]: Abby Amin on 04/13/20 4:[address] Patient Name: NYDIA GANNON Encounter No: [id number] : 1940 Primary Insurance: MEDICARE A & B Senior Sales Associate: :Abby Amin UR Note: JUAN SIGNED FOR [facility]. STATES HAVING BRONCH TODAY. Abby Amin DCP- Discharge Planning Updated by [id number]: Abby Amin on 04/09/20 5:[address] Patient Name: NYDIA GANNON Admission Status: Urgent Accout number: [id number] Admission Date: 04-01-2020 : 1940 Admission Diagnosis:DYSPNEA, UNSPECIFIED Attending: MICAH MADISON Current LOS: 8 Anticipated DC Date: Planned Disposition: Primary Insurance: MEDICARE A & B Discharge Planning Comments: SPOKE WITH PATIENT TODAY. HE PLANS TO GO HOME WHEN BETTER. HE HAS O2 FOR NIGHT TIME. WILL NEED WALK TEST FOR POSSIBLE O2 AT HOME. USES [facility]. DOES NOT WANT HH OR REHAB. STATES HE IS CAPABLE OF DOING HIS OWN THERAPY. 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 I TALKED WITH DR. SOLORZANO AND POSSIBLE DC WILL BE MONDAY. CM TO FOLLOW AND ASSIST. Senior Sales Associate: Abby Amin DCP- Discharge Planning Updated by [id number]: Abby Amin on 04/06/20 4:[address] Patient Name: NYDIA GANNON Admission Status: Urgent Accout number: [id number] Admission Date: 04-01-2020 : 1940 Admission Diagnosis:DYSPNEA, UNSPECIFIED Attending: MICAH MADISON Current LOS: 5 Anticipated DC Date: Planned Disposition: Primary Insurance: MEDICARE A & B Discharge Planning Comments: PATIENT HAS HOME 02 AND MOTORIZED WHEELCHAIR. MEDICAL RECORDS STATE PATIENT INDEPENDENT WITH ALL MOBILITY. STATES HE DOES NOT REQUIRED SKILLED PT. PATIENT IS AT HIS PLOF, AMBULATES HOUSEHOLD DISTANCES ONLY. USES A MOTORIZED WHEELCHAIR. LIVES AT HOME WITH SPOUSE. CM WILL FOLLOW AND ASSIST NEEDED WITH DC PLANNING/NEEDS. Senior Sales Associate: Abby Amin Coverage Notice Reviewer: [id number] - Abby Amin Notice Issued Date-Time: 04/13/2020 17:27 Notice Type: Patient Choice Letter Notice Delivered To: Patient Relationship to Patient: Paper Sales Manager Name: Delivery Method: HAND - Hand Delivered Kate Days: Prior Verbal Notification: Recipient Understood Notice: Yes Recipient Signature: Yes Med Rec Note Co-signed by Attending: Coverage Notice Comment: [facility] Reviewer: [id number] Stephan Amin Notice Issued Date-Time: 04/21/2020 13:34 Notice Type: IM Discharge Notice Notice Delivered To: Relationship to Patient: Paper Sales Manager Name: Delivery Method: HAND - Hand Delivered Kate Days: Prior Verbal Notification: Recipient Understood Notice: Yes Recipient Signature: Yes Med Rec Note Co-signed by Attending: Coverage Notice Comment: Reviewer: [id number] Amin Notice Issued Date-Time: 04/21/2020 13:34 Notice Type: Patient Choice Letter Notice Delivered To: Patient Relationship to Patient: Paper Sales Manager Name: Delivery Method: - Kate Days: Prior Verbal Notification: Recipient Understood Notice: Recipient Signature: Med Rec Note Co-signed by Attending: Coverage Notice Comment: Last DP export: 04/21/20 4:55 p Patient Name: NYDIA GANNON Page 15600 at 1243 All edits/amendments must be made on the electronic document DICTATION DATE: 04/22/20 1243 SUPERINTENDENT RADIO COMMUNICATIONS: EDILIA 04/22/20 1243 RPT#: [id number] [place] DATE: STATUS: ADM IN [facility] [address] [place] [address] END OF REPORT
[2020-04-22 12:54] VITALS: BP 120/70
--- NOTE | 2020-04-22 14:08 | NUR ---
Rehab Reviewed patient's chart today for the ARU. He has had a new PT eval and the OT is pending. He was able to sit on the side of the bed when he became dizzy and had to lay back down. Discussed the patient at length with Dr Kirkland the rehab Wellfield Technician. Dr Kirkland feels based on the patient's hx with PT he is currently to low level to be able to participate in the required therapy. Discussed with the CM Abby Amin RN. If the patient shows considerable improvement and participation with therapy over the next few days rehab will re-eval. Soniya Hebert RN Clinical Liaison, Rehab .
--- NOTE | 2020-04-22 14:49 | EC ---
PATIENT:NYDIA GANNON DATE OF SERVICE: 04/01/20 SEX: M MEDICAL RECORD: [id number] DATE OF : 40 LOCATION:D.MS [address]222 AGE OF PATIENT: 80 ADMISSION DATE: 04/01/20 REFERRING PHYSICIAN: INTERPRETING PHYSICIAN: SARA MADDEN MD ECHOCARDIOGRAM REPORT ECHO CHARGES 4 ECHO COMPLETE Date: 04/19/20 CLINICAL DIAGNOSIS: NSTEMI ECHOCARDIOGRAPHIC MEASUREMENTS (adult normal given) AC root (d.<3.7cm) 3.3 cm LV Septum d (<1.2 cm> 1.0 cm Valve Excursion 1.4 cm LV Septum (systole) 1.2 cm Left Atria (s.<4.0cm> 4.8 cm LVPW d(<1.2cm) 1.0 cm RV (d.<2.3cm) 3.5 cm LVPW (sytole) 1.2 cm LV diastole(<5.6CM) 4.8 cm MV E-F(>70mm/sec) cm LV systole 3.6 cm LVOT Diameter 1.9 cm MV exc.(>10mm) cm Est.ejection fraction (50-75%) % DOPPLER: LVIT cm/sec A 37 cm/sec E 60 cm/sec LA cm/sec RVSP 15.3 mmHg LVOT 72 cm/sec AOP1/2T m/s Asc. Ao 96 cm/sec RVOT 51 cm/sec RA cm/sec PA 60 cm/sec AV Gradient Peak 3.7 mmHg AV Mean 2.3 mmHg AV Area 2.2 cm MV Gradient Peak 4.0 mmHg MV Mean 1.5 mmHg MV Area cm COMMENTS: Scientologist: Luciano SHETTY Stamping Operator: 4 Dr. Madden TAPE# PACS Pericardial Effusion N DATE OF SERVICE: PROCEDURE: Transthoracic echocardiogram. FINDINGS: 1. Left ventricle ejection fraction is 40% to 45%. There is mild inferior basilar and anterior lateral hypokinesis. 2. Left atrium is qfvxbi-no-jcfahngqjy enlarged. 3. Aortic valve is normal. 4. The mitral valve has spjr-on-bemdhpyk regurgitation. ECHOCARDIOGRAM REPORT [id number] NYDIA GANNON 5. Tricuspid valve has nwob-it-ceneifyi tricuspid regurgitation. The RVSP is normal. 6. Right ventricle is mildly dilated with normal function. 7. The right atrium is mildly dilated with normal function. 8. The pulmonic valve is normal. TRANSINT:[id number] Voice Confirmation ID: [id number] DOCUMENT ID: [id number] SARA MADDEN MD at 1449 CC: [id number] DICTATION DATE: 04/21/20 1057 CONTACT CENTRE SUPERVISOR: 04/21/20 1127 ADM IN [facility] [address] [id number]
--- NOTE | 2020-04-22 16:02 | NUR ---
OT NOTE: PT COMPLETED BED MOB WITH MIN A. PT COMPLETED SIT TO STAND WITH MIN A. PT REQUIRED SET UP FOR FACE HYGIENE. PT IS WEAK. [phone] THANK YOU,BERTO FRAZIER
--- NOTE | 2020-04-22 16:22 | NUR ---
RESTING IN BED WITH EYES CLOSED, BREATHING EVEN AND UNLABORED. NO S/S OF DISTRESS NOTED AT THIS TIME. AROUSES EASILY TO VOICE. DENIES ANY NEEDS. WILL CONTINUE TO MONITOR.
--- NOTE | 2020-04-22 16:44 | MORECARE ---
CASE MANAGEMENT DISCHARGE SUMMARY PATIENT: NYDIA GANNON UNIT: [id number] ADM DATE: 04/01/20 AGE: 80 : 40 SEX: M ROOM/BED: D.2227 AUTHOR: LINETTEDOC PHYSICIAN: REFERRING PHYSICIAN: MICAH MADISON MD DATE OF SERVICE: 04/22/20 Discharge Plan Patient Name: NYDIA GANNON Facility: [facility]:[place] : 1940 Planned Disposition: Anticipated Discharge Date: Discharge Date: Expected LOS: Initial Reviewer: [id number] Initial Review Date: 04/01/2020 Generated: 04/22/20 5:43 pm Comments DCP- Discharge Planning Updated by [email or web address]: Abby Amin on 04/21/20 4:[address] Patient Name: NYDIA GANNON Admission Status: Urgent Accout number: [id number] Admission Date: 04-01-2020 : 1940 Admission Diagnosis:DYSPNEA, UNSPECIFIED Attending: MICAH MADISON Current LOS: 20 Anticipated DC Date: Planned Disposition: Primary Insurance: MEDICARE A & B Discharge Planning Comments: SPOKE WITH PATIENT'S SON TANISHA AND HE STATES HIM AND HIS BROTHER WILL NOT PICK HIM UP TO DC TO HOME. STATES HE CANNOT TAKE CARE OF HIMSELF UNTIL HE GETS STRONGER. BUT THEIR FATHER IS VERY STRONG WILLED. I SPOKE WITH DR. SOLORZANO AND HE STATES PATIENT WILL PARTICIPATE IN PT AND AGREE TO GO TO [facility]. ANTICIPATE DC IN THE MORNING. Section Housekeeper: Abby Amin DCP- Discharge Planning Updated by [email or web address]: Abby Amin on 04/21/20 12:[address] Patient Name: NYDIA GANNON Admission Status: Urgent Accout number: [id number] Admission Date: 04-01-2020 : 1940 Admission Diagnosis:DYSPNEA, UNSPECIFIED Attending: MICAH MADISON Current LOS: 20 Anticipated DC Date: Planned Disposition: Primary Insurance: MEDICARE A & B Discharge Planning Comments: PATIENT TO DC TO HOME TODAY. JUAN S[facility]. HAS 02 WITH [facility] PATIENT BUT MAY NEED CONTINOUSE O2. WALK TEST ORDERED AND WILL FAX RESULTS TO [facility] PATIENT AT [phone]. IMM SIGNED. WATING CALL BACK FROM [facility]. CM TO FOLLOW AND ASSIST. Section Housekeeper: Abby Amin DCP- Discharge Planning Updated by [id number]: Abby Amin on 04/13/20 4:[address] Patient Name: NYDIA GANNON Encounter No: [id number] : 1940 Primary Insurance: MEDICARE A & B Section Housekeeper: :Abby Amin UR Note: JUAN SIGNED FOR [facility]. STATES HAVING BRONCH TODAY. Abby Amin DCP- Discharge Planning Updated by [id number]: Abby Amin on 04/09/20 5:[address] Patient Name: NYDIA GANNON Admission Status: Urgent Accout number: [id number] Admission Date: 04-01-2020 : 1940 Admission Diagnosis:DYSPNEA, UNSPECIFIED Attending: MICAH AMDISON Current LOS: 8 Anticipated DC Date: Planned Disposition: Primary Insurance: MEDICARE A & B Discharge Planning Comments: SPOKE WITH PATIENT TODAY. HE PLANS TO GO HOME WHEN BETTER. HE HAS O2 FOR NIGHT TIME. WILL NEED WALK TEST FOR POSSIBLE O2 AT HOME. USES [facility]IENT. DOES NOT WANT HH OR REHAB. STATES HE IS CAPABLE OF DOING HIS OWN THERAPY. 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 I TALKED WITH DR. SOLORZANO AND POSSIBLE DC WILL BE MONDAY. CM TO FOLLOW AND ASSIST. Section Housekeeper: Abby Amin DCP- Discharge Planning Updated by [id number]: Abby Amin on 04/06/20 4:[address] Patient Name: NYDIA GANNON Admission Status: Urgent Accout number: [id number] Admission Date: 04-01-2020 : 1940 Admission Diagnosis:DYSPNEA, UNSPECIFIED Attending: MICAH MADISON Current LOS: 5 Anticipated DC Date: Planned Disposition: Primary Insurance: MEDICARE A & B Discharge Planning Comments: PATIENT HAS HOME 02 AND MOTORIZED WHEELCHAIR. MEDICAL RECORDS STATE PATIENT INDEPENDENT WITH ALL MOBILITY. STATES HE DOES NOT REQUIRED SKILLED PT. PATIENT IS AT HIS PLOF, AMBULATES HOUSEHOLD DISTANCES ONLY. USES A MOTORIZED WHEELCHAIR. LIVES AT HOME WITH SPOUSE. CM WILL FOLLOW AND ASSIST NEEDED WITH DC PLANNING/NEEDS. Section Housekeeper: Abby Amin External Providers External Provider: [employer] Next Contact Date: Service Request Date: Service Type: Resolution: Reviewer: Comments: Coverage Notice Reviewer: [id number] - Abby Amin Notice Issued Date-Time: 04/13/2020 17:27 Notice Type: Patient Choice Letter Notice Delivered To: Patient Relationship to Patient: Day Treatment Clinician/Art Therapist Name: Delivery Method: HAND - Hand Delivered Kate Days: Prior Verbal Notification: Recipient Understood Notice: Yes Recipient Signature: Yes Med Rec Note Co-signed by Attending: Coverage Notice Comment: [facility] Reviewer: [id number] Amin Notice Issued Date-Time: 04/21/2020 13:34 Notice Type: IM Discharge Notice Notice Delivered To: Relationship to Patient: Day Treatment Clinician/Art Therapist Name: Delivery Method: HAND - Hand Delivered Kate Days: Prior Verbal Notification: Recipient Understood Notice: Yes Recipient Signature: Yes Med Rec Note Co-signed by Attending: Coverage Notice Comment: Reviewer: [id number] Stephan Amin Notice Issued Date-Time: 04/21/2020 13:34 Notice Type: Patient Choice Letter Notice Delivered To: Patient Relationship to Patient: Day Treatment Clinician/Art Therapist Name: Delivery Method: - Kate Days: Prior Verbal Notification: Recipient Understood Notice: Recipient Signature: Med Rec Note Co-signed by Attending: Coverage Notice Comment: Last DP export: 04/22/20 11:43 a Patient Name: NYDIA GANNON Page [id number] at 1644 All edits/amendments must be made on the electronic document DICTATION DATE: 04/22/201642 SPARE FIXER: EDILIA 04/22/201642 RPT#: [id number] DC DATE: STATUS: ADM IN [facility] [address] [place] [address] END OF REPORT
--- NOTE | 2020-04-22 16:52 | MORECARE ---
CASE MANAGEMENT DISCHARGE SUMMARY PATIENT: NYDIA GANNON UNIT: [id number] ADM DATE: 04/01/20 AGE: 80 : 40 SEX: M ROOM/BED: D.2227 AUTHOR: LINETTEDOC PHYSICIAN: REFERRING PHYSICIAN: MICAH MADISON MD DATE OF SERVICE: 04/22/20 Discharge Plan Patient Name: NYDIA GANNON Facility: [facility]:[place] : 1940 Planned Disposition: Anticipated Discharge Date: Discharge Date: Expected LOS: Initial Reviewer: [id number] Initial Review Date: 04/01/2020 Generated: 04/22/20 5:52 pm Comments DCP- Discharge Planning Updated by [id number]: Abby Amin on 04/22/20 3:[address] Patient Name: NYDIA GANNON Admission Status: Urgent Accout number: [id number] Admission Date: 04-01-2020 : 1940 Admission Diagnosis:DYSPNEA, UNSPECIFIED Attending: MICAH MADISON Current LOS: 21 Anticipated DC Date: Planned Disposition: Primary Insurance: MEDICARE A & B Discharge Planning Comments: OT AND PT EVAL COMPETED TODAY. PATIENT PARTICIPATED IN THERAPY AND WOULD LIKE TO GO TO [facility]. WAITING ACCEPTANCE. IF NOT ACCEPTED HERE POSSIBLE ACCEPTANCE AT [facility] TOMORROW. CM TO FOLLOW AND ASSIST. IMM SIGNED YESTERDAY. Finish Photographer: Abby Amin DCP- Discharge Planning Updated by [id number]: Abby Amin on 04/21/20 4:[address] Patient Name: NYDIA GANNON Admission Status: Urgent Accout number: [id number] Admission Date: 04-01-2020 : 1940 Admission Diagnosis:DYSPNEA, UNSPECIFIED Attending: MICAH MADISON Current LOS: 20 Anticipated DC Date: Planned Disposition: Primary Insurance: MEDICARE A & B Discharge Planning Comments: SPOKE WITH PATIENT'S SON TANISHA AND HE STATES HIM AND HIS BROTHER WILL NOT PICK HIM UP TO DC TO HOME. STATES HE CANNOT TAKE CARE OF HIMSELF UNTIL HE GETS STRONGER. BUT THEIR FATHER IS VERY STRONG WILLED. I SPOKE WITH DR. SOLORZANO AND HE STATES PATIENT WILL PARTICIPATE IN PT AND AGREE TO GO TO [facility]. ANTICIPATE DC IN THE MORNING. Finish Photographer: Abby Amin DCP- Discharge Planning Updated by [id number]: Abby Amin on 04/21/20 12:[address] Patient Name: NYDIA GANNON Admission Status: Urgent Accout number: [id number] Admission Date: 04-01-2020 : 1940 Admission Diagnosis:DYSPNEA, UNSPECIFIED Attending: MICAH MADISON Current LOS: 20 Anticipated DC Date: Planned Disposition: Primary Insurance: MEDICARE A & B Discharge Planning Comments: PATIENT TO DC TO HOME TODAY. JUAN S[facility] FOR [facility]. [facility] WITH [facility] PATIENT BUT MAY NEED CONTINOUSE O2. WALK TEST ORDERED AND WILL FAX RESULTS TO [facility] PATIENT AT [phone]. IMM SIGNED. WATING CALL BACK FROM [facility]. CM TO FOLLOW AND ASSIST. Finish Photographer: Abby Amin DCP- Discharge Planning Updated by [id number]: Abby Amin on 04/13/20 4:[address] Patient Name: NYDIA GANNON Encounter No: [id number] : 1940 Primary Insurance: MEDICARE A & B Finish Photographer: :Abby Amin UR Note: JUAN SIGNED FOR [facility]. STATES HAVING BRONCH TODAY. Abby Amin DCP- Discharge Planning Updated by [id number]: Abby Amin on 04/09/20 5:[address] Patient Name: NYDIA GANNON Admission Status: Urgent Accout number: [id number] Admission Date: 04-01-2020 : 1940 Admission Diagnosis:DYSPNEA, UNSPECIFIED Attending: MICAH MADISON Current LOS: 8 Anticipated DC Date: Planned Disposition: Primary Insurance: MEDICARE A & B Discharge Planning Comments: SPOKE WITH PATIENT TODAY. HE PLANS TO GO HOME WHEN BETTER. HE HAS O2 FOR NIGHT TIME. WILL NEED WALK TEST FOR POSSIBLE O2 AT HOME. USES [facility]. DOES NOT WANT HH OR REHAB. STATES HE IS CAPABLE OF DOING HIS OWN THERAPY. 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 I TALKED WITH DR. SOLORZANO AND POSSIBLE DC WILL BE MONDAY. CM TO FOLLOW AND ASSIST. Finish Photographer: Abby Amin DCP- Discharge Planning Updated by [id number]: Abby Amin on 04/06/20 4:[address] Patient Name: NYDIA GANNON Admission Status: Urgent Accout number: [id number] Admission Date: 04-01-2020 : 1940 Admission Diagnosis:DYSPNEA, UNSPECIFIED Attending: MICAH MADISON Current LOS: 5 Anticipated DC Date: Planned Disposition: Primary Insurance: MEDICARE A & B Discharge Planning Comments: PATIENT HAS HOME 02 AND MOTORIZED WHEELCHAIR. MEDICAL RECORDS STATE PATIENT INDEPENDENT WITH ALL MOBILITY. STATES HE DOES NOT REQUIRED SKILLED PT. PATIENT IS AT HIS PLOF, AMBULATES HOUSEHOLD DISTANCES ONLY. USES A MOTORIZED WHEELCHAIR. LIVES AT HOME WITH SPOUSE. CM WILL FOLLOW AND ASSIST NEEDED WITH DC PLANNING/NEEDS. Finish Photographer: Abby Amin Coverage Notice Reviewer: [id number] Stephan Amin Notice Issued Date-Time: 04/21/2020 13:34 Notice Type: Patient Choice Letter Notice Delivered To: Patient Relationship to Patient: Fox Farmer Name: Delivery Method: - Kate Days: Prior Verbal Notification: Recipient Understood Notice: Recipient Signature: Med Rec Note Co-signed by Attending: Coverage Notice Comment: Reviewer: [id number] Amin Notice Issued Date-Time: 04/13/2020 17:27 Notice Type: Patient Choice Letter Notice Delivered To: Patient Relationship to Patient: Fox Farmer Name: Delivery Method: HAND - Hand Delivered Kate Days: Prior Verbal Notification: Recipient Understood Notice: Yes Recipient Signature: Yes Med Rec Note Co-signed by Attending: Coverage Notice Comment: JUAN FOR [facility] Reviewer: [id number] Stephan Amin Notice Issued Date-Time: 04/21/2020 13:34 Notice Type: IM Discharge Notice Notice Delivered To: Relationship to Patient: Fox Farmer Name: Delivery Method: HAND - Hand Delivered Kate Days: Prior Verbal Notification: Recipient Understood Notice: Yes Recipient Signature: Yes Med Rec Note Co-signed by Attending: Coverage Notice Comment: Last DP export: 04/22/20 3:44 p Patient Name: NYDIA GANNON Page [phone] at 1652 All edits/amendments must be made on the electronic document DICTATION DATE: 04/22/201651 RETORT ENGINEER: EDILIA 04/22/201651 RPT#: [id number] DC DATE: STATUS: ADM IN [facility] [address] [place] [address] END OF REPORT
[2020-04-22 16:54] VITALS: BP 118/64
--- NOTE | 2020-04-22 18:45 | NUR ---
I have reviewed this patient and I concur with the Shift Assessment completed by the Licensed Practical Nurse today this shift.
[2020-04-22 20:00] VITALS: BP 121/75
--- NOTE | 2020-04-22 20:25 | NUR ---
SITTING UP IN BED EATING DINNER. STATES HE WASNT HUNGRY EARLIER. ALERT AND ORIENTED X4. RESP IRREG. NO DISTRESS. O2 @ 3L/NC. TELEMETRY SHOWS AFIB WITH RATE OF 99. MEREDITH CATH PATENT AND DRAINING YELLOW URINE. BRUISES NOTED TO BUE AND BLE. PROD COUGH WITH WHITE SPUTUM. SALINE LOCK NOTED TO RT FOREARM. DENIES PAIN. SR ELEVATED X2. CL IN REACH.
--- NOTE | 2020-04-23 03:41 | NUR ---
HASNT SLEPT MUCH TONIGHT. LYING IN BED WATCHING TV. SOME CONFUSION. ASKED IF IT WAS DAYTIME OR NIGHT TIME. NO DISTRESS. CL IN REACH.
[2020-04-23 04:00] VITALS: BP 96/68
--- NOTE | 2020-04-23 06:39 | NUR ---
PT REFUSING BIPAP
[2020-04-23 07:12] LABS: MAGNESIUM - SERUM 2.1 mg/dL (1.8-2.4); PHOSPHOROUS 4.1 mg/dL (2.5-4.9)
[2020-04-23 08:00] VITALS: BP 140/68
--- NOTE | 2020-04-23 09:37 | NUR ---
PT RESTING QUIETLY IN BED WITH EYES CLOSED. OPENS EYES STAFF ENTERS ROOM. RESP SHALLOW, SOB WITH EXERTION. O2 @ 3L NC IN PLACE. DENIES PAIN AT THIS TIME. SALINE LOC TO RIGHT ARM, SITE WITHOUT REDNESS OR EDEMA. F/C PATENT TO GRAVITY. DENIES FURTHER NEEDS AT THIS TIME. CL WITHIN REACH. ENCOURAGED TO CALL WITH NEEDS. CONTINUE POC
[2020-04-23 10:52] LABS: BASOPHILS 0.2 % (0-2); EOSINOPHILS 1.3 % (0-7); HEMATOCRIT 34.1 % (42.0-54.0); HEMOGLOBIN 10.5 g/dL (13.5-17.5); LYMPHOCYTES 11.9 % (15-50); MCH 27.6 pg (26.0-34.0); MCHC 30.8 g/dL (31.0-37.0); MCV 89.5 fL (80.0-100.0); MEAN PLATELET VOLUME 10.3 fL (7.4-10.4); NEUTROPHILS 80.6 % (40-80); RBC 3.81 10x6/uL (4.20-6.10); WBC 4.5 10x3/uL (4.8-10.8)
[2020-04-23 10:54] LABS: PLATELET COUNT 130 10x3/uL (130-400)
[2020-04-23 11:12] LABS: ANION GAP 6.4 mmol/L (8-16); BILIRUBIN - TOTAL 0.65 mg/dL (0.2-1.3); CALCIUM 8.2 mg/dL (8.5-10.1); CARBON DIOXIDE 35.1 mmol/L (21.0-32.0); CREATININE - SERUM 1.2 mg/dL (0.6-1.3); POTASSIUM - SERUM 4.5 mmol/L (3.5-5.1); PROTEIN - SERUM 5.3 g/dL (6.4-8.2)
[2020-04-23 12:11] VITALS: BP 143/74
--- NOTE | 2020-04-23 13:21 | MORECARE ---
CASE MANAGEMENT DISCHARGE SUMMARY PATIENT: NYDIA GANNON UNIT: [id number] ADM DATE: 04/01/20 AGE: 80 : 40 SEX: M ROOM/BED: D.2227 AUTHOR: LINETTE,DOC PHYSICIAN: REFERRING PHYSICIAN: MICAH MADISON MD DATE OF SERVICE: 04/23/20 Discharge Plan Patient Name: NYDIA GANNON Facility: [facility]:[place] : 1940 Planned Disposition: Anticipated Discharge Date: Discharge Date: Expected LOS: Initial Reviewer: [email or web address] Initial Review Date: 04/01/2020 Generated: 04/23/20 2:21 pm Comments DCP- Discharge Planning Updated by [email or web address]: Abby Amin on 04/23/20 12:[address] Patient Name: NYDIA GANNON Admission Status: Urgent Accout number: [id number] Admission Date: 04-01-2020 : 1940 Admission Diagnosis:DYSPNEA, UNSPECIFIED Attending: MICAH MADISON Current LOS: 22 Anticipated DC Date: Planned Disposition: Primary Insurance: MEDICARE A & B Discharge Planning Comments: CM SPOKE WITH PATIENT THIS MORNING AND HE WOULD BE WILLING TO GO TO [facility] TODAY. THEY WILL CALL US WITH A GLUING MACHINE OPERATOR AUTOMATIC TIME AND WILL TRANSPORT HIS ELECTRIC WHEELCHAIR WITH HIM. PATIENT SON ALSO NOTIFIED. CM TO [facility] AND ASSIST NEEDED. Furniture Restorer: Abby Amin DCP- Discharge Planning Updated by [email or web address]: Abby Amin on 04/22/20 3:[address] Patient Name: NYDIA GANNON Admission Status: Urgent Accout number: [id number] Admission Date: 04-01-2020 : 1940 Admission Diagnosis:DYSPNEA, UNSPECIFIED Attending: MICAH MADISON Current LOS: 21 Anticipated DC Date: Planned Disposition: Primary Insurance: MEDICARE A & B Discharge Planning Comments: OT AND PT EVAL COMPETED TODAY. PATIENT PARTICIPATED IN THERAPY AND WOULD LIKE TO GO TO [facility]. WAITING ACCEPTANCE. IF NOT ACCEPTED HERE POSSIBLE ACCEPTANCE AT [facility] TOMORROW. CM TO FOLLOW AND ASSIST. IMM SIGNED YESTERDAY. Furniture Restorer: Abby Amin DCP- Discharge Planning Updated by [id number]: Abby Amin on 04/21/20 4:[address] Patient Name: NYDIA GANNON Admission Status: Urgent Accout number: [id number] Admission Date: 04-01-2020 : 1940 Admission Diagnosis:DYSPNEA, UNSPECIFIED Attending: MICAH MADISON Current LOS: 20 Anticipated DC Date: Planned Disposition: Primary Insurance: MEDICARE A & B Discharge Planning Comments: SPOKE WITH PATIENT'S SON TANISHA AND HE STATES HIM AND HIS BROTHER WILL NOT PICK HIM UP TO DC TO HOME. STATES HE CANNOT TAKE CARE OF HIMSELF UNTIL HE GETS STRONGER. BUT THEIR FATHER IS VERY STRONG WILLED. I SPOKE WITH DR. SOLORZANO AND HE STATES PATIENT WILL PARTICIPATE IN PT AND AGREE TO GO TO [facility]. ANTICIPATE DC IN THE MORNING. Furniture Restorer: Abby Amin DCP- Discharge Planning Updated by [id number]: Abby Amin on 04/21/20 12:[address] Patient Name: NYDIA GANNON Admission Status: Urgent Accout number: [id number] Admission Date: 04-01-2020 : 1940 Admission Diagnosis:DYSPNEA, UNSPECIFIED Attending: MICAH MADISON Current LOS: 20 Anticipated DC Date: Planned Disposition: Primary Insurance: MEDICARE A & B Discharge Planning Comments: PATIENT TO DC TO HOME TODAY. JUAN SIGNED FOR [facility] OR [facility]. HAS 02 WITH [facility] PATIENT BUT MAY NEED CONTINOUSE O2. WALK TEST ORDERED AND WILL FAX RESULTS TO [facility] PATIENT AT [phone]. IMM SIGNED. WATING CALL BACK FROM [facility]. CM TO FOLLOW AND ASSIST. Furniture Restorer: Abby Amin DCP- Discharge Planning Updated by [id number]: Abby Amin on 04/13/20 4:[address] Patient Name: NYDIA GANNON Encounter No: [id number] : 1940 Primary Insurance: MEDICARE A & B Furniture Restorer: :Abby Amin UR Note: JUAN SIGNED FOR [facility]. STATES HAVING BRONCH TODAY. Abby Amin DCP- Discharge Planning Updated by [id number]: Abby Amin on 04/09/20 5:[address] Patient Name: NYDIA GANNON Admission Status: Urgent Accout number: [id number] Admission Date: 04-01-2020 : 1940 Admission Diagnosis:DYSPNEA, UNSPECIFIED Attending: MICAH MADISON Current LOS: 8 Anticipated DC Date: Planned Disposition: Primary Insurance: MEDICARE A & B Discharge Planning Comments: SPOKE WITH PATIENT TODAY. HE PLANS TO GO HOME WHEN BETTER. HE HAS O2 FOR NIGHT TIME. WILL NEED WALK TEST FOR POSSIBLE O2 AT HOME. USES [facility] PATIENT. DOES NOT WANT HH OR REHAB. STATES HE IS CAPABLE OF DOING HIS OWN THERAPY. HE IS A RETIRED [employer]. I TALKED WITH DR. SOLORZANO AND POSSIBLE DC WILL BE MONDAY. CM TO FOLLOW AND ASSIST. Furniture Restorer: Abby Amin DCP- Discharge Planning Updated by [id number]: Abby Amin on 04/06/20 4:[address] Patient Name: NYDIA GANNON Admission Status: Urgent Accout number: [id number] Admission Date: 04-01-2020 : 1940 Admission Diagnosis:DYSPNEA, UNSPECIFIED Attending: MICAH MADISON Current LOS: 5 Anticipated DC Date: Planned Disposition: Primary Insurance: MEDICARE A & B Discharge Planning Comments: PATIENT HAS HOME 02 AND MOTORIZED WHEELCHAIR. MEDICAL RECORDS STATE PATIENT INDEPENDENT WITH ALL MOBILITY. STATES HE DOES NOT REQUIRED SKILLED PT. PATIENT IS AT HIS PLOF, AMBULATES HOUSEHOLD DISTANCES ONLY. USES A MOTORIZED WHEELCHAIR. LIVES AT HOME WITH SPOUSE. CM WILL FOLLOW AND ASSIST NEEDED WITH DC PLANNING/NEEDS. Furniture Restorer: Abby Amin Coverage Notice Reviewer: [id number] - Abby Amin Notice Issued Date-Time: 04/13/2020 17:27 Notice Type: Patient Choice Letter Notice Delivered To: Patient Relationship to Patient: Database Marketing Analyst Name: Delivery Method: HAND - Hand Delivered Kate Days: Prior Verbal Notification: Recipient Understood Notice: Yes Recipient Signature: Yes Med Rec Note Co-signed by Attending: Coverage Notice Comment: [facility] Reviewer: [id number] Stephan Amin Notice Issued Date-Time: 04/21/2020 13:34 Notice Type: IM Discharge Notice Notice Delivered To: Relationship to Patient: Database Marketing Analyst Name: Delivery Method: HAND - Hand Delivered Kate Days: Prior Verbal Notification: Recipient Understood Notice: Yes Recipient Signature: Yes Med Rec Note Co-signed by Attending: Coverage Notice Comment: Reviewer: [id number] Stephan Amin Notice Issued Date-Time: 04/21/2020 13:34 Notice Type: Patient Choice Letter Notice Delivered To: Patient Relationship to Patient: Database Marketing Analyst Name: Delivery Method: - Kate Days: Prior Verbal Notification: Recipient Understood Notice: Recipient Signature: Med Rec Note Co-signed by Attending: Coverage Notice Comment: Last DP export: 04/22/20 3:52 p Patient Name: NYDIA GANNON Page [phone] at 1321 All edits/amendments must be made on the electronic document DICTATION DATE: 04/23/20 1321 TRAVEL REGISTERED NURSE NICU: EDILIA 04/23/20 1321 RPT#: [id number] DC DATE: STATUS: ADM IN [facility] [address] [place] [address] END OF REPORT
--- NOTE | 2020-04-23 15:58 | NUR ---
OT NOTE: PT COMPLETED SUPINE TO SIT WITH CGA. PT COMPLETED SIDE SCOOTING WITH SBA. PT COMPLETED SIT TO STAND WITH SBA/CGA. PT COMPLETED BRIDGING WITH MOD I. [id number] THANK YOU,BERTO FRAZIER
== END 2020-04-23 15:36 | DRG 193 ==
LOC: D.M2 11:47 → D.MS 11:47
PROVIDERS: Emergency Medicine; Family Medicine; Family Medicine Adult Medicine; Internal Medicine Pulmonary Disease; ADMIT Family Medicine; ATTEND Family Medicine
PROC: 5A09357 Assistance with Respiratory Ventilation, Less than 24 Consecutive Hours, Continuous Positive Airway Pressure (ICD-10-PCS; principal; 2020-04-18)
DX: J18.9 Pneumonia, unspecified organism (principal); J96.21 Acute and chronic respiratory failure with hypoxia; E43 Unspecified severe protein-calorie malnutrition; I48.20 Chronic atrial fibrillation, unspecified; E87.1 Hypo-osmolality and hyponatremia; G89.29 Other chronic pain; M54.9 Dorsalgia, unspecified; R73.9 Hyperglycemia, unspecified; Z68.20 Body mass index [BMI] 20.0-20.9, adult; J43.9 Emphysema, unspecified; J98.09 Other diseases of bronchus, not elsewhere classified; I12.9 Hypertensive chronic kidney disease with stage 1 through stage 4 chronic kidney disease, or unspecified chronic kidney disease; N18.9 Chronic kidney disease, unspecified; D63.1 Anemia in chronic kidney disease; Z87.891 Personal history of nicotine dependence

== ENCOUNTER 2020-05-11 13:21 | Emergency (ER) | payer MEDICARE, BC ==
[~2020-05-11] VITALS: Ht 170.2 cm; Wt 52.7 kg
[~2020-05-11 13:21] MED LIST: ALBUTEROL2.5 MG/3 M INH; CYMBALTA60 MG PO; DOXYCYCLINE HY100 M2 PO; FOLATE0.4 MG PO; INCRUSE ELLI62.5 MCG INH; IPRAT-ALBUT 0.5-3 ML UPD; LISINOPRIL10 MG PO; MUCINEX DM ER1 EAC1 PO; PERFOROMIS20 MCG/21 UPD; PRAVACHOL40 MG PO; PULMICORT0.5 MG/21 UPD; STERAPRED DS 1210 MG PO; TOPROL XL25 MG PO; XARELTO20 MG PO
[2020-05-11 13:25] VITALS: Ht 170.2 cm; Wt 52.7 kg
[2020-05-11 14:42] LABS: BASOPHILS 0.2 % (0-2); EOSINOPHILS 0.4 % (0-7); HEMATOCRIT 31.5 % (42.0-54.0); HEMOGLOBIN 9.7 g/dL (13.5-17.5); IMMATURE GRANULOCYTES 0.5 % (0-5); LYMPHOCYTES 10.4 % (15-50); MCH 27.2 pg (26.0-34.0); MCHC 30.8 g/dL (31.0-37.0); MCV 88.2 fL (80.0-100.0); MEAN PLATELET VOLUME 8.9 fL (7.4-10.4); MONOCYTES 6.7 % (2-11); NEUTROPHILS 81.8 % (40-80); RBC 3.57 10x6/uL (4.20-6.10); RDW 16.1 % (11.5-14.5); WBC 9.9 10x3/uL (4.8-10.8)
[2020-05-11 14:43] LABS: PLATELET COUNT 207 10x3/uL (130-400)
[2020-05-11 15:17] LABS: CALC OSMOLALITY 282 mosm/kg (275-300); CALCIUM 7.6 mg/dL (8.5-10.1); CARBON DIOXIDE 26.6 mmol/L (21.0-32.0); CHLORIDE - SERUM 104 mmol/L (98-107); CREATININE - SERUM 1.4 mg/dL (0.6-1.3); GLUCOSE 144 mg/dL (74-106); POTASSIUM - SERUM 4.6 mmol/L (3.5-5.1); SODIUM 137 mmol/L (136-145); UREA NITROGEN 28 mg/dL (7-18); eGFR NON AFRICAN AMERICAN 52 mL/min (90-120)
[2020-05-11 15:31] LABS: ALBUMIN 2.1 g/dL (3.4-5.0); ALKALINE PHOSPHATASE 76 U/L (30-120); ALT (SGPT) 89 U/L (10-68); BILIRUBIN - TOTAL 0.52 mg/dL (0.2-1.3); MAGNESIUM - SERUM 1.8 mg/dL (1.8-2.4); PROTEIN - SERUM 5.8 g/dL (6.4-8.2); THYROID STIMULATING HORMONE 2.77 uIU/mL (0.36-3.74); TROPONIN-I < 0.017 ng/mL (0.000-0.060)
[2020-05-11] MEDS ORDERED: HYDROCODON-ACE1 EAC7 PO (16:34)
[2020-05-11 19:52] VITALS: BP 132/89
== END 2020-05-11 19:52 | disposition home or self-care (01) ==
LOC: D.ER 13:21
PROVIDERS: Emergency Medicine
DX: M25.512 Pain in left shoulder (principal); I48.20 Chronic atrial fibrillation, unspecified; J44.9 Chronic obstructive pulmonary disease, unspecified; I10 Essential (primary) hypertension; Z99.81 Dependence on supplemental oxygen